=== PATIENT | female | born 1955 | race Caucasian/White ===

== ENCOUNTER → 2020-12-09 13:22 | Outpatient (BNVA) | payer MEDICARE, MEDICAID, SELFPAY | PROVIDERS: PCP Internal Medicine; Visit Provider Physician Assistant | DX: Z76.89 Persons encountering health services in other specified circumstances (principal) | CPT/HCPCS: Q3014 ==

== ENCOUNTER → 2020-12-15 15:24 | Outpatient (BNVA) | payer MEDICARE, MEDICAID, SELFPAY | PROVIDERS: PCP Internal Medicine; Referring Provider Internal Medicine; Visit Provider Student in an Organized Health Care Education/Training Program ==

== ENCOUNTER 2021-02-02 14:34 | Outpatient (REF) | payer MEDICARE, MEDICAID, SELFPAY ==
[2021-02-02 16:09] LABS: Alanine Aminotransferase 9 U/L (0-31); Albumin Level 4.4 g/dL (3.5-5.0); Alkaline Phosphatase 51 U/L (39-117); Anion Gap 11 (12-20); Aspartate Amino Transferase 16 U/L (5-31); Blood Urea Nitrogen 10 mg/dL (9-16); Calcium 9.4 mg/dL (8.4-10.2); Carbon Dioxide 28 mmol/L (22-29); Chloride 102 mmol/L (96-108); Estimated Glomerular Filt Rate > 60; Glucose Random 85 mg/dL (60-115); Potassium 4.7 mmol/L (3.3-5.1); Sodium 136 mmol/L (135-145); Total Protein 7.1 g/dL (6.5-8.0)
[2021-02-02 16:23] LABS: Bilirubin Total < 0.2 mg/dL (0.0-1.0)
== END 2021-02-02 14:35 | disposition home or self-care (01) ==
LOC: HO.LAB 14:34
PROVIDERS: PCP Internal Medicine; Visit Provider Student in an Organized Health Care Education/Training Program
DX: G89.29 Other chronic pain (principal); M54.41 Lumbago with sciatica, right side; Z79.899 Other long term (current) drug therapy
CPT/HCPCS: 36415; 80053; 99212

== ENCOUNTER 2021-04-24 10:05 | Outpatient (REF) | payer MEDICARE, MEDICAID, SELFPAY ==
[2021-04-24 11:12] LABS: Hematocrit 36.6 % (37-47); Hemoglobin 12.4 g/dl (12.0-16.0); Mean Corpuscular HGB Conc 33.9 g/dl (31.0-35.0); Mean Corpuscular Hemoglobin 31.6 pg (27.0-33.0); Mean Corpuscular Volume 93.1 fL (80-98); Mean Platelet Volume 9.6 fL (9.4-12.3); Platelet Count 418 X10*3/uL (160-400); Red Blood Count 3.93 X10*6/uL (4.20-5.50); Red Cell Distribution Width 11.8 % (11.0-16.0); White Blood Count 7.3 X10*3/uL (4.8-10.8)
[2021-04-24 11:36] LABS: Alanine Aminotransferase 12 U/L (0-31); Albumin Level 4.5 g/dL (3.5-5.0); Alkaline Phosphatase 55 U/L (39-117); Anion Gap 13 (12-20); Aspartate Amino Transferase 23 U/L (5-31); Bilirubin Total 0.5 mg/dL (0.0-1.0); Blood Urea Nitrogen 7 mg/dL (9-16); Calcium 9.5 mg/dL (8.4-10.2); Carbon Dioxide 27 mmol/L (22-29); Chloride 100 mmol/L (96-108); Cholesterol 228 mg/dL; Estimated Glomerular Filt Rate > 60; Glucose Fasting 87 mg/dL (60-99); HDL Cholesterol 78 mg/dL; LDL Cholesterol Calculated 139 mg/dl; Potassium 4.8 mmol/L (3.3-5.1); Sodium 135 mmol/L (135-145); Total Protein 7.2 g/dL (6.5-8.0); Triglycerides 59 mg/dL
[2021-04-24 11:57] LABS: Thyroid Stimulating Hormone 0.02 uIU/mL (0.32-4.0)
== END 2021-04-24 10:06 | disposition home or self-care (01) ==
LOC: HO.HMGCLDS 10:05
PROVIDERS: PCP Internal Medicine; Visit Provider Internal Medicine
DX: B19.20 Unspecified viral hepatitis C without hepatic coma (principal); E03.9 Hypothyroidism, unspecified; I10 Essential (primary) hypertension; J44.9 Chronic obstructive pulmonary disease, unspecified; F41.9 Anxiety disorder, unspecified
CPT/HCPCS: 36415; 80053; 80061; 84443; 85027

== ENCOUNTER 2021-06-15 08:43 | Day surgery (SDC) | payer MEDICARE, MEDICAID, SELFPAY ==
[2021-02-24 11:01] VITALS: BMI 22.1
[2021-05-18 13:46] VITALS: BMI 21.6
--- NOTE | 2021-05-24 10:18 | P.CONAN_ITS ---
HPI - Anesthesia Eval Consult details Narrative: 65yo F for Colonoscopy PMF Active Problems Active Problems: All Active Problems (Updated 02/02/21 @ 14:37 by Janette Kaiser MD) Lumbago with sciatica, right side (Acute) Encounter for screening colonoscopy (Acute) Allergies (Acute) S/P LEODAN (total abdominal hysterectomy) (Acute) Hepatitis C infection (Acute) History of breast cancer (Acute) Spinal stenosis (Acute) HTN (hypertension) (Acute) Asthma (Acute) Hypothyroid (Acute) Past Medical History Medical History Allergies Anxiety Asthma COPD (chronic obstructive pulmonary disease) ETOH abuse Hepatitis C infection History of breast cancer HTN (hypertension) Hypothyroid Osteoarthritis Spinal stenosis Family History Family History Mother Breast cancer Skin cancer Throat cancer Colon cancer Brother No problems noted. Brother No problems noted. Sister No problems noted. Maternal Grandfather Colon cancer Maternal Uncle Colon cancer Surgical History Surgical History History of appendectomy History of mastectomy History of tonsillectomy S/P LEODAN (total abdominal hysterectomy) Social History Social History (Updated 02/24/21 @ 11:03 by Lina Madrigal) Are you a primary family day carer to a significant other at home: No Do you presently have visiting nurse or other home services: No Patient Tobacco Use Status: Current everyday Tobacco user Tobacco use type: Cigarette Meds Allergies Allergy/AdvReac Type Severity Reaction Status Date / Time docetaxel [From TAXOTERE] Allergy Intermediate TONGUE Verified 05/18/21 13:39 SWELLING Home Medications Medication Instructions Recorded Confirmed Last Taken Type albuterol sulfate 90 mcg/actuation 1 inh INHALATION Q4H PRN 09/15/20 04/29/21 Unknown History aerosol inhaler levothyroxine 112 mcg tablet 112 mcg PO QAM 09/15/20 04/29/21 Unknown History omeprazole 20 mg capsule,delayed 20 mg PO DAILY 09/15/20 04/29/21 Unknown History release diphenhydramine HCl 25 mg capsule 25 mg PO TID PRN 12/09/20 04/29/21 Unknown History montelukast 10 mg tablet 10 mg PO DAILY 02/02/21 04/29/21 Unknown History Exam Exam Date and Time: May 24, 2021 1018 Height,Weight and Vital Signs: Height 5 ft 6 in Weight 60.781 kg Pertinent Lab Results Pertinent Lab Results: Laboratory Tests 04/24/21 04/24/21 10:10 10:10 WBC 7.3 Hgb 12.4 Hct 36.6 L Plt Count 418 H Sodium 135 Potassium 4.8 Chloride 100 Carbon Dioxide 27 BUN 7 L Creatinine 0.72 Assessment and Plan Assessment Anesthesia Assessment: Chart Reviewed
--- NOTE | 2021-06-14 08:45 | P.CONAN_ITS ---
HPI - Anesthesia Eval Consult details Narrative: 65yo F for Colonoscopy PMF Active Problems Active Problems: All Active Problems (Updated 02/02/21 @ 14:37 by Janette Kaiser MD) Lumbago with sciatica, right side (Acute) Encounter for screening colonoscopy (Acute) Allergies (Acute) S/P LEODAN (total abdominal hysterectomy) (Acute) Hepatitis C infection (Acute) History of breast cancer (Acute) Spinal stenosis (Acute) HTN (hypertension) (Acute) Asthma (Acute) Hypothyroid (Acute) Past Medical History Medical History Allergies Anxiety Asthma COPD (chronic obstructive pulmonary disease) ETOH abuse Hepatitis C infection History of breast cancer HTN (hypertension) Hypothyroid Osteoarthritis Spinal stenosis Family History Family History Mother Breast cancer Skin cancer Throat cancer Colon cancer Brother No problems noted. Brother No problems noted. Sister No problems noted. Maternal Grandfather Colon cancer Maternal Uncle Colon cancer Surgical History Surgical History History of appendectomy History of mastectomy History of tonsillectomy S/P LEODAN (total abdominal hysterectomy) Social History Social History (Updated 02/24/21 @ 11:03 by Lina Madrigal) Are you a primary inpatient care manager rn to a significant other at home: No Do you presently have visiting nurse or other home services: No Patient Tobacco Use Status: Current everyday Tobacco user Tobacco use type: Cigarette Patient Given Instructions on How to Stop Smoking: Yes Date Education Initiated: 05/18/21 Advance Directives Information Provided: No Meds Allergies Allergy/AdvReac Type Severity Reaction Status Date / Time docetaxel [From TAXOTERE] Allergy Intermediate TONGUE Verified 05/18/21 13:39 SWELLING Home Medications Medication Instructions Recorded Confirmed Last Taken Type levothyroxine 112 mcg tablet 112 mcg PO QAM 09/15/20 04/29/21 Unknown History omeprazole 20 mg capsule,delayed 20 mg PO DAILY 09/15/20 04/29/21 Unknown History release diphenhydramine HCl 25 mg capsule 25 mg PO TID PRN 12/09/20 04/29/21 Unknown History montelukast 10 mg tablet 10 mg PO DAILY 02/02/21 04/29/21 Unknown History Exam Exam Date and Time: June 14, 2021 0845 Height,Weight and Vital Signs: Height 5 ft 6 in Weight 60.781 kg Pertinent Lab Results Pertinent Lab Results: Laboratory Tests 04/24/21 04/24/21 10:10 10:10 WBC 7.3 Hgb 12.4 Hct 36.6 L Plt Count 418 H Sodium 135 Potassium 4.8 Chloride 100 Carbon Dioxide 27 BUN 7 L Creatinine 0.72 Assessment and Plan Assessment Anesthesia Assessment: Chart Reviewed
--- NOTE | 2021-06-15 09:04 | MHC.SHP ---
Pre-Procedural Eval Section A Date of Service: 06/15/21 Section B Chief Complaint: Screening Details of Present Illness: colon cancer screening Relevant Family History (Specify if Yes): Yes Relevant Social History: Tobacco Use Present Medications: see Short Stay Collaborative assessment Medical History: Significant History (Allergies Anxiety Asthma COPD (chronic obstructive pulmonary disease) ETOH abuse Hepatitis C infection History of breast cancer HTN (hypertension) Hypothyroid Osteoarthritis Spinal stenosis) History of Previous Operations: Relevant previous surgery/procedure and date(s) (History of appendectomy History of mastectomy History of tonsillectomy S/P LEODAN (total abdominal hysterectomy)) Allergies: Allergies Allergy/AdvReac Type Severity Reaction Status Date / Time docetaxel [From TAXOTERE] Allergy Intermediate TONGUE Verified 05/18/21 13:39 SWELLING Review of Systems Sugical H&P ROS: Negative: Constitution, Cardiovascular, Respiratory and Gastrointestinal Exam Surgical H&P Exam: Normal: Heart, Normal: Lungs, Normal: Extremities and Normal: Abdomen Plan Diagnosis/Plan: Unchanged I have reviewed the history and physical and performed a pertinent physical examination on my patient. No changes have occurred unless specified.
[2021-06-15 09:23] VITALS: BP 126/71; PULSE 84; RESP 18; TEMP 36.4; O2SAT 97
[2021-06-15] MEDS: Lactated Ringers 1,000 ML 100 ML IVCONT (09:30)
--- NOTE | 2021-06-15 09:30 | P.CONAN_ITS ---
[facility] Active Problems Active Problems: All Active Problems (Updated 02/02/21 @ 14:37 by Janette elizabeth MD) Lumbago with sciatica, right side (Acute) Encounter for screening colonoscopy (Acute) Allergies (Acute) S/P LEODAN (total abdominal hysterectomy) (Acute) Hepatitis C infection (Acute) History of breast cancer (Acute) Spinal stenosis (Acute) HTN (hypertension) (Acute) Asthma (Acute) Hypothyroid (Acute) Past Medical History Medical History Allergies Anxiety Asthma COPD (chronic obstructive pulmonary disease) ETOH abuse Hepatitis C infection History of breast cancer HTN (hypertension) Hypothyroid Osteoarthritis Spinal stenosis Family History Family History Mother Breast cancer Skin cancer Throat cancer Colon cancer Brother No problems noted. Brother No problems noted. Sister No problems noted. Maternal Grandfather Colon cancer Maternal Uncle Colon cancer Surgical History Surgical History History of appendectomy History of mastectomy History of tonsillectomy S/P LEODAN (total abdominal hysterectomy) Social History Social History (Updated 02/24/21 @ 11:03 by Lina Madrigal) Are you a primary pharmacist critical care to a significant other at home: No Do you presently have visiting nurse or other home services: No Patient Tobacco Use Status: Current everyday Tobacco user Tobacco use type: Cigarette Patient Given Instructions on How to Stop Smoking: Yes Date Education Initiated: 05/18/21 Advance Directives Information Provided: No Meds Allergies Allergy/AdvReac Type Severity Reaction Status Date / Time docetaxel [From TAXOTERE] Allergy Intermediate TONGUE Verified 05/18/21 13:39 SWELLING Active Medications: Current Medications Generic Name Dose Route Start Last Admin Trade Name Freq PRN Reason Stop Dose Admin Albuterol Sulfate 2.5 mg 06/15/21 09:20 Albuterol Sulfate (0.083%) 2.5 Mg/3 Ml Vial.Neb INHALE ONCE PRN Shortness of Breath/Wheezing Lactated Ringer's 1,000 mls @ 100 mls/hr 06/15/21 09:30 06/15/21 09:30 Lr IVCONT 100 mls/hr .Q10H CARMELO Administration Home Medications Medication Instructions Recorded Confirmed Last Taken Type levothyroxine 112 mcg tablet 112 mcg PO QAM 09/15/20 04/29/21 Unknown History omeprazole 20 mg capsule,delayed 20 mg PO DAILY 09/15/20 04/29/21 Unknown History release diphenhydramine HCl 25 mg capsule 25 mg PO TID PRN 12/09/20 04/29/21 Unknown History montelukast 10 mg tablet 10 mg PO DAILY 02/02/21 04/29/21 Unknown History Exam Exam Date and Time: June 15, 2021 0930 Height,Weight and Vital Signs: Height 5 ft 6 in Weight 60.781 kg Last Vital Signs Temp 97.6 F 06/15/21 09:23 Pulse 84 06/15/21 09:23 Resp 18 06/15/21 09:23 BP 126/71 06/15/21 09:23 Pulse Ox 97 06/15/21 09:23 Airway Mallampati Class: II TM Dist: >3cm Neck ROM: Full Heart: RRR Lungs: CTA
--- NOTE | 2021-06-15 10:06 | P.BOP_ITS ---
Brief Operative Note Date of Service: 06/15/21 Pre-op diagnosis: Colon cancer screen, family history of colon cancer (mom in her 70's) Post-op diagnosis: other (Colon polyps, diverticulosis) Procedure: COLONOSCOPY TILL CECUM WITH BIOPSIES AND SNARE POLYPECTOMY Consent: Indications for the procedure and potential complications of bleeding, perforation, reaction to medications and missed diagnosis were discussed with the patient and informed consent was obtained. Instrument: Olympus PCF H 190 L variable stiffness pediatric colonoscope Monitoring: Vital signs and clinical assessment, intermittent blood pressure monitoring, continuous EKG monitoring, Pulse oximetry and Carbon Dioxide monitoring were done throughout the procedure. Colon withdrawl time was 28 minutes. Procedure: The patient was placed in the left lateral decubitis position and pre-procedure medications were administered. After a digital rectal examination of the ano-rectum, the video colonoscope was inserted into the rectum and advanced through the colon to the cecum. The colonoscope was slowly withdrawn in a retrograde panoramic fashion and the colon mucosa was carefully examined including a retroflexed view of the rectum. Findings and interventions are described below. Procedure Difficulty: Colon was long and tortuous and there was spasm and some loop formation. LLQ pressure was applied to intubate the ascending colon/cecum Findings: Terminal Ileum: Not evaluated Cecum: Normal Ascending Colon: Normal Transverse Colon: Two 4-5 mm diminutive appearing polyps in the distal transverse colon removed with cold biopsies. Descending Colon: Normal Sigmoid Colon: A 7-8 mm sessile polyp removed with a cold bx. Two 8-15 mm hyperplastic appearing polyps at 25 cms removed with a hot snare. Moderate diverticulosis Rectum: Normal Ano-rectum: Normal Colon preparation: Good Impression and Post Procedure Diagnosis: Colonoscopy Findings: Five small to medium sized polyps removed Moderate diverticulosis seen in the sigmoid colon Plan: Await pathology results. Pt will be sent a letter with bx results. Repeat Colonoscopy interval based on path results - in 3-5 years if polyps are adenomatous and 10 years if polyps are hyperplastic. Above findings were reviewed with the patient and colon polyps and diverticulosis handouts were given in the discharge area Surgeon: Varsha Moy MD Anesthesia: MAC (Dr Lott) Was an Painter Interior Finish used for this Procedure?: Yes Painter Interior Finish: Haydee Mckinney Estimated blood loss (mL): 0 Pathology: other (A: TRANSVERSE COLON POLYPS B: SIGMOID COLON POLYP C: SIGMOID COLON POLYPS AT 25 CM) Condition: stable Disposition: PACU
[2021-06-15 10:57] VITALS: BP 103/60; PULSE 85; RESP 16; TEMP 36.4; O2SAT 97
[2021-06-15 11:12] VITALS: BP 123/62; PULSE 82; RESP 16; TEMP 36.4; O2SAT 100
== END 2021-06-15 11:38 | disposition home or self-care (01) ==
PROVIDERS: PCP Internal Medicine; Visit Provider Internal Medicine Gastroenterology
PROC: 0DJD8ZZ Inspection of Lower Intestinal Tract, Via Natural or Artificial Opening Endoscopic (ICD-10-PCS; CPT 45378; principal; 2021-06-15 10:00)
DX: Z12.11 Encounter for screening for malignant neoplasm of colon (principal); Z80.0 Family history of malignant neoplasm of digestive organs; K63.5 Polyp of colon; K57.30 Diverticulosis of large intestine without perforation or abscess without bleeding; J44.9 Chronic obstructive pulmonary disease, unspecified; I10 Essential (primary) hypertension; Z79.899 Other long term (current) drug therapy; Z85.3 Personal history of malignant neoplasm of breast; Z86.19 Personal history of other infectious and parasitic diseases; F17.210 Nicotine dependence, cigarettes, uncomplicated
CPT/HCPCS: 45385; 45380; 88305

== ENCOUNTER 2021-07-15 09:56 | Outpatient (REF) | payer MEDICARE, MEDICAID, SELFPAY ==
[2021-07-15 12:09] LABS: TSH reflex Free T4 0.05 uIU/mL (0.32-4.0)
[2021-07-15 12:41] LABS: Free T4 (Free Thyroxine) 1.28 ng/dL (0.71-1.85)
== END 2021-07-15 09:57 | disposition home or self-care (01) ==
LOC: HO.HMGCLDS 09:56
PROVIDERS: PCP Internal Medicine; Visit Provider Internal Medicine
DX: E03.9 Hypothyroidism, unspecified (principal)
CPT/HCPCS: 36415; 84439; 84443

== ENCOUNTER 2022-01-14 14:07 | Outpatient (REF) | payer MEDICARE, MEDICAID, SELFPAY ==
--- NOTE | ~2022-01-14 | CT_ITS ---
EXAMINATION: CT CHEST SCREENING CLINICAL INFORMATION: 50 pack year history COMPARISON: Previous chest CT May 2020 TECHNIQUE: Multidetector volumetric CT imaging of the chest is performed without contrast using low dose technique. Additional 2D coronal and sagittal reformatted images and axial 3D maximum intensity projection (MIP) images are generated on the CT workstation. This CT examination was performed using dose optimization techniques as appropriate, variously including the following: *Automated exposure control *Adjustment of mA and/or kV according to patient size (this includes techniques or standardized protocols for targeted exams where dose is matched to indication/reason for exam; i.e. extremities or head) *Use of iterative reconstruction technique DLP: 59 mGy-cm FINDINGS: LUNGS: There is mild emphysema. There is a new peripheral or subpleural 4 mm left lower lobe nodule axial image 255 series 5. The pulmonary nodules are otherwise stable. There is a 1.5 cm cyst in the left lower lobe. MEDIASTINUM: There is mild coronary artery calcification. The mediastinum is otherwise normal. PLEURA: There is no pleural effusion. No pleural mass or thickening. AXILLA: There are surgical clips in the right axilla. Both breasts. Have been removed. No chest wall mass or enlarged axillary lymph nodes. UPPER ABDOMEN: Unremarkable OSSEOUS STRUCTURES: Mild scoliosis and degenerative changes of the lower thoracic and upper lumbar spine. CT/CT lung screening IMPRESSION: Mild emphysema. New 4 mm peripheral or subpleural left lower lobe nodule. This may represent a subpleural lymph node. Otherwise small pulmonary nodules are stable. ASSESSMENT: Lung-RADS category 2: Benign RECOMMENDATION: Annual low-dose chest CT follow-up recommended.
== END 2022-01-14 14:08 | disposition home or self-care (01) ==
LOC: HO.CT 14:07
PROVIDERS: Visit Provider Physician Assistant Medical
DX: Z12.2 Encounter for screening for malignant neoplasm of respiratory organs (principal); Z87.891 Personal history of nicotine dependence
CPT/HCPCS: 71271

== ENCOUNTER 2022-01-17 10:53 | Outpatient (REF) | payer MEDICARE, MEDICAID, SELFPAY ==
[2022-01-17 14:28] LABS: TSH reflex Free T4 0.04 uIU/mL (0.32-4.0)
== END 2022-01-17 10:54 | disposition home or self-care (01) ==
LOC: HO.HMGCLDS 10:53
PROVIDERS: Visit Provider Internal Medicine
DX: E03.9 Hypothyroidism, unspecified (principal)
CPT/HCPCS: 36415; 84439; 84443

== ENCOUNTER → 2022-02-10 12:35 | Outpatient (BNVA) | payer MEDICARE, MEDICAID, SELFPAY | PROVIDERS: PCP Internal Medicine; Visit Provider Nurse Practitioner Family | DX: M54.41 Lumbago with sciatica, right side (principal); G89.29 Other chronic pain | CPT/HCPCS: 99212 ==

== ENCOUNTER 2022-04-04 13:30 | Outpatient (REF) | payer MEDICARE, MEDICAID, SELFPAY ==
[2022-04-04 16:47] LABS: Alanine Aminotransferase 10 U/L (0-31); Albumin Level 4.1 g/dL (3.5-5.0); Alkaline Phosphatase 52 U/L (39-117); Anion Gap 12 (12-20); Aspartate Amino Transferase 17 U/L (5-31); Bilirubin Total 0.2 mg/dL (0.0-1.0); Blood Urea Nitrogen 8 mg/dL (9-16); Calcium 9.6 mg/dL (8.4-10.2); Carbon Dioxide 28 mmol/L (22-29); Chloride 102 mmol/L (96-108); Estimated Glomerular Filt Rate > 60; Glucose Random 87 mg/dL (60-115); Potassium 4.1 mmol/L (3.3-5.1); Sodium 138 mmol/L (135-145); Total Protein 7.2 g/dL (6.5-8.0)
== END 2022-04-04 13:31 | disposition home or self-care (01) ==
LOC: HO.HMGCLDS 13:30
PROVIDERS: Visit Provider Nurse Practitioner Family
DX: M54.41 Lumbago with sciatica, right side (principal)
CPT/HCPCS: 36415; 80053

== ENCOUNTER 2022-08-18 07:52 | Outpatient (REF) | payer MEDICARE, MEDICAID, SELFPAY ==
[2022-08-18 11:23] LABS: Hematocrit 36.8 % (37.0-47.0); Hemoglobin 12.3 g/dl (12.0-16.0); Mean Corpuscular HGB Conc 33.4 g/dl (31.0-35.0); Mean Corpuscular Hemoglobin 31.1 pg (27.0-33.0); Mean Corpuscular Volume 93.2 fL (80.0-98.0); Mean Platelet Volume 9.8 fL (9.4-12.3); Platelet Count 392 X10*3/uL (160-400); Red Blood Count 3.95 X10*6/uL (4.20-5.50); Red Cell Distribution Width 12.5 % (11.0-16.0); White Blood Count 7.8 X10*3/uL (4.8-10.8)
[2022-08-18 11:37] LABS: Alanine Aminotransferase 13 U/L (0-31); Albumin Level 4.4 g/dL (3.5-5.0); Alkaline Phosphatase 53 U/L (39-117); Anion Gap 14 (12-20); Aspartate Amino Transferase 21 U/L (5-31); Bilirubin Total 0.5 mg/dL (0.0-1.0); Blood Urea Nitrogen 10 mg/dL (9-16); Calcium 9.7 mg/dL (8.4-10.2); Carbon Dioxide 26 mmol/L (22-29); Chloride 101 mmol/L (96-108); Cholesterol 257 mg/dL; Estimated Glomerular Filt Rate > 60; Glucose Fasting 84 mg/dL (60-99); HDL Cholesterol 77 mg/dL; LDL Cholesterol Calculated 168 mg/dl; Potassium 4.6 mmol/L (3.3-5.1); Sodium 136 mmol/L (135-145); Total Protein 7.3 g/dL (6.5-8.0); Triglycerides 63 mg/dL
[2022-08-18 12:07] LABS: TSH reflex Free T4 0.04 uIU/mL (0.32-4.0)
[2022-08-18 12:40] LABS: Free T4 (Free Thyroxine) 1.35 ng/dL (0.71-1.85)
== END 2022-08-18 07:53 | disposition home or self-care (01) ==
LOC: HO.HMGCLDS 07:52
PROVIDERS: PCP Internal Medicine; Visit Provider Internal Medicine
DX: Z00.00 Encounter for general adult medical examination without abnormal findings (principal); E03.9 Hypothyroidism, unspecified; I10 Essential (primary) hypertension
CPT/HCPCS: 36415; 80053; 80061; 84439; 84443; 85027

== ENCOUNTER 2022-12-22 08:40 | Outpatient (REF) | payer MEDICARE, MEDICAID, SELFPAY ==
[2022-12-22 11:57] LABS: Cholesterol 196 mg/dL; HDL Cholesterol 71 mg/dL; LDL Cholesterol Calculated 110 mg/dl; Triglycerides 75 mg/dL
== END 2022-12-22 08:41 | disposition home or self-care (01) ==
LOC: HO.HMGCLDS 08:40
PROVIDERS: PCP Internal Medicine; Visit Provider Internal Medicine
DX: E78.5 Hyperlipidemia, unspecified (principal); I10 Essential (primary) hypertension
CPT/HCPCS: 36415; 80061

== ENCOUNTER 2023-01-10 09:52 | Outpatient (REF) | payer MEDICARE, MEDICAID, SELFPAY ==
--- NOTE | ~2023-01-10 | CT_ITS ---
EXAMINATION: CT CHEST SCREENING CLINICAL INFORMATION: Current smoker. 40 pack year history. COMPARISON: Previous chest CT scans most recent December 2021 TECHNIQUE: Multidetector volumetric CT imaging of the chest is performed without contrast using low dose technique. Additional 2D coronal and sagittal reformatted images and axial 3D maximum intensity projection (MIP) images are generated on the CT workstation. This CT examination was performed using dose optimization techniques as appropriate, variously including the following: *Automated exposure control *Adjustment of mA and/or kV according to patient size (this includes techniques or standardized protocols for targeted exams where dose is matched to indication/reason for exam; i.e. extremities or head) *Use of iterative reconstruction technique DLP: 40 mGy-cm FINDINGS: LUNGS: Mild paraseptal emphysema. 3 mm left upper lobe nodule axial image 134 series 5. Stable. 2 mm superior segment left lower lobe nodule axial image 176 series 5. Stable. 2 adjacent peripheral or subpleural left lower lobe nodules adjacent to fissure measuring 6 and 4 mm axial image 212 and 2:15 probably representing subpleural lymph nodes. Stable. 1 cm cyst at the left lung base in the left lower lobe axial image 390 series 5. The previously identified peripheral or subpleural 4 mm left lower lobe nodule that was seen on December 2021 exam is no longer seen. MEDIASTINUM: The mediastinum is normal. CORONARY ARTERY CALCIFICATION: Mild PLEURA: There is no pleural effusion. No pleural mass or thickening. AXILLA: Surgical clips in the right axilla. No axillary adenopathy. Postmastectomy bilaterally. UPPER ABDOMEN: Tiny 1 mm stone in the upper pole of the right kidney. Small low-attenuation lesion less than 1 cm medial segment of the left anterior segment of the right lobe of the liver axial image 54 series 3 is stable. OSSEOUS STRUCTURES: Degenerative changes of the spine. CT/CT lung screening IMPRESSION: Mild paraseptal emphysema. Previously identified 4 mm peripheral or subpleural left lower lobe nodule that was new on December 2021 exam is no longer seen. Otherwise pulmonary nodules are stable. ASSESSMENT: Lung-RADS category 2: Benign RECOMMENDATION: Annual low-dose chest CT follow-up recommended.
== END 2023-01-10 09:53 | disposition home or self-care (01) ==
LOC: HO.CT 09:52
PROVIDERS: Absent Provider Physician Assistant; PCP Internal Medicine; Visit Provider Physician Assistant Medical
DX: Z12.2 Encounter for screening for malignant neoplasm of respiratory organs (principal); F17.210 Nicotine dependence, cigarettes, uncomplicated
CPT/HCPCS: 71271

== ENCOUNTER 2023-08-01 09:27 | Outpatient (REF) | payer MEDICARE, MEDICAID, SELFPAY ==
[2023-08-01 13:25] LABS: MANUAL DIFF FLAG NO
[2023-08-01 13:39] LABS: Basophils Absolute Auto 0.1 X10*3/uL (0.0-0.2); Basophils Percent Auto 0.7 % (0-2); Eosinophils Absolute Auto 0.1 X10*3/uL (0.0-0.4); Eosinophils Percent Auto 1.1 % (0-4); Hematocrit 39.7 % (37.0-47.0); Hemoglobin 13.1 g/dl (12.0-16.0); Imm Gran Abs Auto 0.02 X10*3/uL (0.00-0.03); Imm Gran Pct Auto 0.3 % (0.0-0.4); Lymphocytes Absolute Auto 2.2 X10*3/uL (1.2-4.9); Mean Corpuscular Hemoglobin 31.9 pg (27.0-33.0); Mean Corpuscular Volume 96.6 fL (80.0-98.0); Mean Platelet Volume 9.9 fL (9.4-12.3); Monocytes Absolute Auto 0.4 X10*3/uL (0.1-1.2); Monocytes Percent Auto 5.1 % (2-11); Neutrophils Absolute Auto 4.8 x10*3/uL (2.0-8.3); Neutrophils Percent Auto 63.8 % (45-73); Platelet Count 395 X10*3/uL (160-400); Red Blood Count 4.11 X10*6/uL (4.20-5.50); Red Cell Distribution Width 12.5 % (11.0-16.0); White Blood Count 7.5 X10*3/uL (4.8-10.8)
[2023-08-01 15:09] LABS: Alanine Aminotransferase 14 U/L (0-31); Albumin Level 4.4 g/dL (3.5-5.0); Alkaline Phosphatase 52 U/L (39-117); Anion Gap 11 (12-20); Aspartate Amino Transferase 21 U/L (5-31); Bilirubin Total 0.2 mg/dL (0.0-1.0); Blood Urea Nitrogen 14 mg/dL (9-16); Carbon Dioxide 30 mmol/L (22-29); Chloride 101 mmol/L (96-108); Cholesterol 175 mg/dL (<200); Estimated Glomerular Filt Rate > 60; Glucose Fasting 90 mg/dL (60-99); HDL Cholesterol 81 mg/dL (>40); LDL Cholesterol Calculated 82 mg/dL (<100); Potassium 4.9 mmol/L (3.3-5.1); Sodium 137 mmol/L (135-145); Total Protein 7.8 g/dL (6.5-8.0); Triglycerides 63 mg/dL (<150)
[2023-08-01 15:10] LABS: TSH reflex Free T4 0.06 uIU/mL (0.32-4.0)
[2023-08-01 15:48] LABS: Free T4 (Free Thyroxine) 1.14 ng/dL (0.71-1.85)
== END 2023-08-01 09:28 | disposition home or self-care (01) ==
LOC: HO.HMGCLDS 09:27
PROVIDERS: PCP Internal Medicine; Visit Provider Internal Medicine
DX: E78.5 Hyperlipidemia, unspecified (principal); I10 Essential (primary) hypertension; E03.9 Hypothyroidism, unspecified
CPT/HCPCS: 36415; 80053; 80061; 84439; 84443; 85025

== ENCOUNTER 2023-08-04 10:57 | Outpatient (AMB) | payer MEDICARE, MEDICAID, SELFPAY ==
--- NOTE | 2023-08-04 11:15 | MHC.PC.OV ---
Vital Signs 08/04/23 11:17 Height 5 ft 6 in Weight 122 lb BMI 19.7 BP 120/66 Blood Pressure Location Lt brachial Position Sitting Pulse 88 Pulse Source Pulse Oximeter Pulse Oximetry (%) 99 Oxygen Delivery Method Room Air Intake Visit Reasons: Annual PE/COPD Intake Note: Pt is here today for PE. Allergies docetaxel [From TAXOTERE] Allergy (Intermediate, Verified 08/04/23 11:19) TONGUE SWELLING Medication List - Last Reconciled 08/04/23 by Julieth Hendrickson MD albuterol sulfate 90 mcg/actuation (Ventolin HFA) 2 puffs inhalation Q6H PRN budesonide-formoterol 80-4.5 mcg/actuation (Symbicort) 2 puffs PO BID diphenhydramine HCl (Benadryl) 25 mg PO TID PRN fluticasone propionate 50 mcg/actuation 2 sprays intranasal DAILY gabapentin 400 mg PO QID levothyroxine 112 mcg PO QAM lisinopril 10 mg PO DAILY methocarbamol 750 mg PO Q8H PRN montelukast 10 mg PO BEDTIME omeprazole 20 mg PO DAILY pravastatin 40 mg PO DAILY Tobacco use date assessed: 08/04/23 Fall risk assessment: No Falls in past year Last assessed Fall Risk: 08/04/23 Dental Screening Dental Screen Date: 08/04/23 Did you have a dental visit in the last 12 months?: Yes Did you have a dental problem in the last 6 months where you did not have access to dental care?: No Was dental information given to patient?: Patient has dentist HPI Annual PE/COPD HPI Details Pt presents for PE PFSH Medical History (Updated 08/04/23 @ 12:00 by Julieth Hendrickson MD) History of colon polyps Nicotine dependence, cigarettes, uncomplicated Allergies Hepatitis C infection History of breast cancer Spinal stenosis HTN (hypertension) ETOH abuse Osteoarthritis Anxiety Hypothyroid COPD (chronic obstructive pulmonary disease) Asthma Surgical History History of colonoscopy History of total hysterectomy History of tonsillectomy History of appendectomy History of mastectomy Family History Mother Breast cancer Skin cancer Throat cancer Colon cancer Brother No problems noted. Brother No problems noted. Sister Substance use disorder Maternal Grandfather Colon cancer Maternal Uncle Colon cancer Father Substance use disorder Social History Housing: House Are you a primary career development consultant to a significant other at home: No Do you presently have visiting nurse or other home services: No Patient Tobacco Use Status: Current everyday Tobacco user Tobacco use type: Cigarette Cigarette Packs Per Day: 1 Cigarettes Per Day: 20 Years Smoked: (onset 15yo, 1ppd x 52yrs, 50pyh) e-Cigarette/Vaping Use: Never Used Current occupational status: unemployed Cognitive needs: No Hearing needs: No Vision needs: Yes Questionnaire Thrive Questionnaire Date Thrive assessed: 01/23/23 AUDIT C Alcohol Use Questionnaire (AUDIT-C) 1. How often do you have a drink containing alcohol?: Never 3. How often do you have six or more drinks on one occasion?: Never Total Score: 0 ZAID-7 AMB Questionnaire ZAID-7 Date ZAID - 7 assessed: 01/23/23 Source: Developed by Drs. Jose Brito, Holley Brewster, Gregorio Landeros and colleagues, with an educational jake from [employer]. Review of Systems Const All systems reviewed & are unremarkable except as noted in HPI and below Reports no additional complaints Eyes Reports no additional complaints ENT Reports no additional complaints Card Reports no additional complaints Resp Reports no additional complaints GI Reports no additional complaints Reports no additional complaints Physical exam (Primary Care) Vital Signs: Last Vital Signs Pulse 88 08/04/23 11:17 BP 120/66 08/04/23 11:17 Pulse Ox 99 08/04/23 11:17 Oxygen Delivery Method Room Air 08/04/23 11:17 BMI result Body Mass Index 19.7 Tobacco/Smoking Status: Tobacco use Status Tobacco use date assessed 08/04/23 08/04/23 11:24 Patient Tobacco Use Status Current everyday Tobacco 08/04/23 11:16 Tobacco use type Cigarette 08/04/23 11:16 e-Cigarette/Vaping Use Never Used 08/04/23 11:16 Thrive Assessment: Date of Thrive Assessment Date Thrive assessed 01/23/23 08/04/23 11:16 Const General: no acute distress HENMT Head: Yes normal to inspection General nose exam: Normal external nose present Face and sinus: Yes normal facial exam Throat: Yes posterior oropharynx normal Eyes General: appearance normal, both eyes and all related structures Neck Neck: Yes no lymphadenopathy and Yes supple Resp Effort & Inspection: normal respiratory effort Auscultation: clear to auscultation bilaterally Cardio Rhythm: regular rhythm Heart sounds: S1 normal heart sound present and S2 normal heart sound present GI Inspection: Yes normal to inspection Palpation (GI): Soft to palpation Percussion: Yes normal to percussion Auscultation: normal bowel sounds Assessment and Plan Assessment & Plan (1) Postmenopausal: Comment: STATUS POST HYSTERECTOMY AND BILATERAL MASTECTOMY Code(s): Z78.0 - Asymptomatic menopausal state Plan: check DEXA (2) Hallux hammertoe: Code(s): M20.30 - Hallux varus (acquired), unspecified foot Plan: REFERRED TO PODIATRY (3) Hypothyroid: Code(s): E03.9 - Hypothyroidism, unspecified Plan: Continue levothyroxine check TSH in 6 months (4) HTN (hypertension): Code(s): I10 - Essential (primary) hypertension Plan: Continue lisinopril (5) Hyperlipidemia: Code(s): E78.5 - Hyperlipidemia, unspecified Plan: Continue pravastatin (6) COPD (chronic obstructive pulmonary disease): Comment: Patient cannot tolerate powder inhalers including Advair Spiriva or Trelegy Code(s): J44.9 - Chronic obstructive pulmonary disease, unspecified Plan: Continue inhalers (7) Nicotine dependence, cigarettes, uncomplicated: Comment: (current smoker - onset 15yo, 1ppd x 52yrs, 50pyh), in lung cancer screening program at [place] Code(s): F17.210 - Nicotine dependence, cigarettes, uncomplicated Orders: Orders XR DEXA axial skeleton Today Z78.0 - Asymptomatic menopausal state Complete Blood Count Auto Diff 6 Months E03.9 - Hypothyroidism, unspecified, E78.5 - Hyperlipidemia, unspecified, I10 - Essential (primary) hypertension, J44.9 - Chronic obstructive pulmonary disease, unspecified Lipid Panel 6 Months E03.9 - Hypothyroidism, unspecified, E78.5 - Hyperlipidemia, unspecified, I10 - Essential (primary) hypertension, J44.9 - Chronic obstructive pulmonary disease, unspecified Comprehensive [place]. Panel Fast 6 Months E03.9 - Hypothyroidism, unspecified, E78.5 - Hyperlipidemia, unspecified, I10 - Essential (primary) hypertension, J44.9 - Chronic obstructive pulmonary disease, unspecified TSH reflex Free T4 6 Months E03.9 - Hypothyroidism, unspecified, E78.5 - Hyperlipidemia, unspecified, I10 - Essential (primary) hypertension, J44.9 - Chronic obstructive pulmonary disease, unspecified Referrals Podiatry Referral M20.30 - Hallux varus (acquired), unspecified foot Coding Level of Care Code Est Pt Prev Care >65y(94965) Diagnoses Postmenopausal Z78.0 Hallux hammertoe M20.30 Hypothyroid E03.9 HTN (hypertension) I10 Hyperlipidemia E78.5 COPD (chronic obstructive pulmonary disease) J44.9 Nicotine dependence, cigarettes, uncomplicated F17.210
[2023-08-04 11:17] VITALS: BP 120/66; PULSE 88; O2SAT 99; BMI 19.7
== END 2023-08-04 11:58 | disposition home or self-care (01) ==
PROVIDERS: PCP Internal Medicine; Visit Provider Internal Medicine
DX: Z00.00 Encounter for general adult medical examination without abnormal findings (principal); E03.9 Hypothyroidism, unspecified; I10 Essential (primary) hypertension; F17.210 Nicotine dependence, cigarettes, uncomplicated; J44.9 Chronic obstructive pulmonary disease, unspecified; Z78.0 Asymptomatic menopausal state; E78.5 Hyperlipidemia, unspecified
CPT/HCPCS: 99397

== ENCOUNTER 2023-08-10 14:55 | Outpatient (REF) | payer MEDICARE, MEDICAID, SELFPAY ==
--- NOTE | ~2023-08-10 | MM_ITS ---
EXAMINATION: BONE DENSITOMETRY CLINICAL INDICATION: Asymptomatic menopausal state. COMPARISON: This is the patient's baseline examination. TECHNIQUE: Using a [employer] DXA System (software version: 13.1) manufactured by [employer], dual-energy x-ray absorptiometry was performed of the lumbar spine and left hip. The images are of good technical quality. Summary results are attached. FINDINGS: LEFT FEMUR, NECK: BMD 0.852 g/cm2, Z-score 0.3, T-score -1.3, osteopenia. LEFT FEMUR, TOTAL: BMD 0.857 g/cm2, Z-score 0.2, T-score -1.2, osteopenia. AP SPINE L1-L4: BMD 1.363 g/cm2, Z-score 3.4, T-score 1.5, normal. IDENTIFIED RISK FACTORS: Anticonvulsant, early menopause, height loss, hysterectomy, low body weight, low calcium intake, secondary osteoporosis, tobacco user (current smoker). HISTORY OF FRACTURE: None listed. MEDICATIONS: Vitamin D. MM/XR DEXA axial skeleton IMPRESSION: 1. DIAGNOSIS: Osteopenia based on the lowest T-score value of -1.3 in the femoral neck applying World Health Organization criteria. 2. 10-YEAR FRACTURE RISK PREDICTION, FRAX: Major osteoporotic fracture (clinical spine, forearm, hip or shoulder) 7.7%. Hip fracture 1.4%. 3. Treatment Recommendations: NOF guidelines recommend consideration for treatment in postmenopausal women and men age 50 and older presenting with the following: -A hip or vertebral (clinical or morphometric) fracture. -T-score less than or equal to -2.5 at the femoral neck or spine after appropriate evaluation to exclude secondary causes. -Low bone mass at the hip or spine and a 10-year fracture probability by FRAX of greater than or equal to 3% for hip fracture or greater than or equal to 20% for major osteoporotic fracture based on the [place] adapted WHO algorithm. 4. Other Recommendations: All treatment decisions require clinical judgment and consideration of individual patient factors, including patient preferences, comorbidities, previous drug use, risk factors not captured in the FRAX model (e.g. frailty, falls, vitamin D deficiency, increased bone turnover, interval significant decline in bone density) and possible under or overestimation of fracture risk by FRAX. Additional medical evaluation for secondary cause of low bone mineral density may be appropriate. FUTURE SCAN RECOMMENDATION: People with diagnosed cases of osteoporosis or at high risk for fracture should have regular bone mineral density tests. For patients eligible for Medicare, routine testing is allowed once every 2 years. The testing frequency can be increased to one year for patients who have rapidly progressing disease, those who are receiving or discontinuing medical therapy to restore bone mass, or have additional risk factors.
== END 2023-08-10 14:56 | disposition home or self-care (01) ==
LOC: HO.MAMMO 14:55
PROVIDERS: PCP Internal Medicine; Visit Provider Internal Medicine
DX: Z13.820 Encounter for screening for osteoporosis (principal); Z78.0 Asymptomatic menopausal state
CPT/HCPCS: 77080

== ENCOUNTER → 2023-08-10 15:00 | Outpatient (BNV) | payer MEDICARE, MEDICAID, SELFPAY | PROVIDERS: PCP Internal Medicine; Visit Provider Radiology Diagnostic Radiology | DX: M85.852 Other specified disorders of bone density and structure, left thigh (principal); Z13.820 Encounter for screening for osteoporosis | CPT/HCPCS: 77080 ==

== ENCOUNTER 2023-08-31 10:48 | Outpatient (AMB) | payer MEDICARE, MEDICAID, SELFPAY ==
--- NOTE | 2023-08-31 10:50 | MHC.OFFVIS ---
Intake Vital Signs 08/31/23 11:01 Height 5 ft 6 in Weight 122 lb 12.76 oz BMI 19.8 BP 122/62 Blood Pressure Location Rt brachial Position Sitting Pulse 96 Pulse Source Pulse Oximeter Temp 98.2 F Temp Source Skin Pulse Oximetry (%) 97 Oxygen Delivery Method Room Air Intake Visit Reasons: Lumbago with sciatica, right side Intake Note: Patient presents today to follow up on lumbargo with sciatica. [employer] Required: No Accompanied by: Self / Same As Patient Allergies docetaxel [From TAXOTERE] Allergy (Intermediate, Verified 08/31/23 10:59) TONGUE SWELLING Medication List - Last Reconciled 08/31/23 by Corby Bae MD albuterol sulfate 90 mcg/actuation (Ventolin HFA) 2 puffs inhalation Q6H PRN budesonide-formoterol 80-4.5 mcg/actuation (Symbicort) 2 puffs PO BID cholecalciferol (vitamin D3) 50 mcg PO DAILY diphenhydramine HCl (Benadryl) 25 mg PO TID PRN fluticasone propionate 50 mcg/actuation 2 sprays intranasal DAILY gabapentin 400 mg PO QID levothyroxine 112 mcg PO QAM lisinopril 10 mg PO DAILY methocarbamol 750 mg PO Q8H PRN montelukast 10 mg PO BEDTIME omeprazole 20 mg PO DAILY pravastatin 40 mg PO DAILY HPI HPI Comments History of Present Illness Details The patient presents for evaluation of her lumbar osteoarthritis with sore sciatica. She was last seen about a year and half ago by Zulma. She has remained on methocarbamol 750 t.i.d. and gabapentin 400 q.i.d.;she had stopped the naproxen. She takes occasional acetaminophen with some benefit. She has lost some weight. Most of this she says is due to the stress of caring for her partner who was in the hospital for 2 months with lung cancer and subsequent surgical complications. She also had a recent bone density test and tells me she has osteopenia. She does not seem to have any sedation with the methocarbamol or the gabapentin at this point. She is still smoking about 1 pack per day. She tries to get her calcium through the diet and takes a vitamin-D supplement. She has no history of fragility fractures. [facility] Medical History (Updated 10/05/23 @ 12:57 by Corby Bae MD) History of colon polyps Nicotine dependence, cigarettes, uncomplicated Allergies Hepatitis C infection History of breast cancer Spinal stenosis HTN (hypertension) ETOH abuse Osteoarthritis Anxiety Hypothyroid COPD (chronic obstructive pulmonary disease) Asthma Surgical History History of colonoscopy History of total hysterectomy History of tonsillectomy History of appendectomy History of mastectomy Family History Mother Breast cancer Skin cancer Throat cancer Colon cancer Brother No problems noted. Brother No problems noted. Sister Substance use disorder Maternal Grandfather Colon cancer Maternal Uncle Colon cancer Father Substance use disorder Social History Housing: House Are you a primary school child care attendant to a significant other at home: No Do you presently have visiting nurse or other home services: No Patient Tobacco Use Status: Current everyday Tobacco user Tobacco use type: Cigarette Cigarette Packs Per Day: 1 Cigarettes Per Day: 20 Years Smoked: (onset 15yo, 1ppd x 52yrs, 50pyh) e-Cigarette/Vaping Use: Never Used Current occupational status: unemployed Cognitive needs: No Hearing needs: No Vision needs: Yes Review of Systems Const Details: Some weight loss in the last year attributed to stress. Negative for appetite change, fever, chills, malaise and fatigue Eyes Details: Negative for vision change, dry eyes,headaches and dizziness Card Details: Negative chest pain, edema and syncope Resp Details: Negative for SOB, cough and wheezing GI Details: Negative indigestion/heartburn, nausea, abdominal pain, bowel changes, diarrhea, constipation and bloody stool. Psych Details: stress of partner's lung cancer Christian/Lymph Details: Negative for excessive bruising or bleeding. Physical Exam Vital Signs: Last Vital Signs Temp 98.2 F 08/31/23 11:01 Pulse 96 08/31/23 11:01 BP 122/62 08/31/23 11:01 Pulse Ox 97 08/31/23 11:01 Oxygen Delivery Method Room Air 08/31/23 11:01 BMI result Body Mass Index 19.8 APPEARANCE: Patient in no acute distress EYES no redness, pupils equal and reactive to light, eyelids normal. No temporal artery tenderness, redness or swelling NOSE/SINUS: Airflow through both nares, no nasal discharge, no bleeding THROAT: Oral mucosa moist, no ulcerations NECK: No thyromegaly or masses, no adenopathy, trachea midline. HEART: Regulrar rhythm, S1-S2 heard, no murmurs, rubs or gallops. LUNG: Clear to percussion and auscultation ABD: Normal bowel sounds, no organomegaly, masses or tenderness. EXTREMITIES: No edema, no calf tenderness, normal peripheral pulses. JOINT EXAM: ?? Cervical Spine:.? Full range of motion without pain; no tenderness. Thoracic Spine:.? No scoliosis.? No tenderness on palpation. Lumbar Spine:.? Some scoliosis. Mild pain with flexion at 90 degrees. No tenderness. Straight leg raising is negative. Chest Wall:.? Some bony prominence at the right sternoclavicular joint without tenderness. Elsewhere there is no tenderness, swelling, increased warmth or erythema. Hands:.? Normal pain-free range of motion with mild bony enlargement at the PIP joints. These are not tender. There is no flexor tendon triggering, thenar atrophy or sensory loss. Other joints have no tenderness, swelling, increased warmth or erythema. Able to make a full fist and has a good tavern car attendant strength. Wrists:.? Normal pain-free range of motion without tenderness, swelling, increased warmth or erythema. Elbows:. Normal pain-free range of motion without tenderness, swelling, increased warmth or erythema. Shoulders:.?? Full range of motion without pain. No tenderness, weakness, swelling, increased warmth or erythema. Hips:.? Full range of motion without pain. Hip bursa:.? No tenderness. Knees:.?? Normal pain-free range of motion without tenderness, swelling, increased warmth or erythema.? There is slight patellofemoral crepitus without effusion, redness or warmth. Ankles:.? Normal pain-free range of motion without tenderness, swelling, increased warmth or erythema. Feet:.? Normal pain-free range of motion without tenderness, swelling, increased warmth or erythema. Tender points:.? No tenderness to digital palpation at the occiput, trapezius, second rib, lateral epicondyle, knees, greater trochanter and gluteal area bilaterally. ? Results Reviewed Results Reviewed: [facility] [address] [place], [place] [address] Mammography Report Signed Patient: Masha Garcia MR#: [id number] : 1955 Acct:[id number] Age/Sex: 67 / F ADM Date: 08/10/[address]: Julieth Hendrickson MD Ordering Physician: Julieth Hendrickson MD Results: Date of Service: 08/10/23 Follow Up: Procedure(s): XR DEXA axial skeleton Accession Number(s): [id number] cc: Julieth Hendrickson MD~ EXAMINATION: BONE DENSITOMETRY CLINICAL INDICATION: Asymptomatic menopausal state. COMPARISON: This is the patient's baseline examination. TECHNIQUE: Using a [employer] DXA System (software version: 13.1) manufactured by [employer], dual-energy x-ray absorptiometry was performed of the lumbar spine and left hip. The images are of good technical quality. Summary results are attached. FINDINGS: LEFT FEMUR, NECK: BMD 0.852 g/cm2, Z-score 0.3, T-score -1.3, osteopenia. LEFT FEMUR, TOTAL: BMD 0.857 g/cm2, Z-score 0.2, T-score -1.2, osteopenia. AP SPINE L1-L4: BMD 1.363 g/cm2, Z-score 3.4, T-score 1.5, normal. IDENTIFIED RISK FACTORS: Anticonvulsant, early menopause, height loss, hysterectomy, low body weight, low calcium intake, secondary osteoporosis, tobacco user (current smoker). HISTORY OF FRACTURE: None listed. MEDICATIONS: Vitamin D. MM/XR DEXA axial skeleton IMPRESSION: 1. DIAGNOSIS: Osteopenia based on the lowest T-score value of -1.3 in the femoral neck applying World Health Organization criteria. 2. 10-YEAR FRACTURE RISK PREDICTION, FRAX: Major osteoporotic fracture (clinical spine, forearm, hip or shoulder) 7.7%. Hip fracture 1.4%. 3. Treatment Recommendations: NOF guidelines recommend consideration for treatment in postmenopausal women and men age 50 and older presenting with the following: -A hip or vertebral (clinical or morphometric) fracture. -T-score less than or equal to -2.5 at the femoral neck or spine after appropriate evaluation to exclude secondary causes. -Low bone mass at the hip or spine and a 10-year fracture probability by FRAX of greater than or equal to 3% for hip fracture or greater than or equal to 20% for major osteoporotic fracture based on the [place] adapted WHO algorithm. 4. Other Recommendations: All treatment decisions require clinical judgment and consideration of individual patient factors, including patient preferences, comorbidities, previous drug use, risk factors not captured in the FRAX model (e.g. frailty, falls, vitamin D deficiency, increased bone turnover, interval significant decline in bone density) and possible under or overestimation of fracture risk by FRAX. Additional medical evaluation for secondary cause of low bone mineral density may be appropriate. FUTURE SCAN RECOMMENDATION: People with diagnosed cases of osteoporosis or at high risk for fracture should have regular bone mineral density tests. For patients eligible for Medicare, routine testing is allowed once every 2 years. The testing frequency can be increased to one year for patients who have rapidly progressing disease, those who are receiving or discontinuing medical therapy to restore bone mass, or have additional risk factors. Dictated By: Daniel Plasencia MD Assessment & Plan Assessment & Plan (1) Osteopenia: Comment: T-scores 07/2023: fem neck -1.3, femur -1.2 LS spine 1.5. Frax 7.7%/1.4% Code(s): M85.80 - Other specified disorders of bone density and structure, unspecified site (2) Lumbago with sciatica, right side: Code(s): M54.41 - Lumbago with sciatica, right side Qualifiers: Back pain laterality: bilateral Chronicity: chronic Qualified Code(s): M54.41 - Lumbago with sciatica, right side; G89.29 - Other chronic pain Plan Her back pain and sciatica symptoms seem controlled with current regimen. She denies any sedation with the gabapentin and methocarbamol. She does not seem to be missing the naproxen which was stopped because of her age and history of hypertension. She has lost weight, likely related to the stress of her partners illness. He is back home now so that could help her out. She has osteopenia and should continue with vitamin-D supplementation and weight-bearing exercises. I would not recommend antiresorptive therapy at this point. A repeat bone density in 2 years would be reasonable. We will continue with the gabapentin and methocarbamol and see her back in about a year. Coding Level of Care Code Est Pt Level 3 (92291) Diagnoses Osteopenia M85.80 Chronic bilateral low back pain with right-sided sciatica M54.41; G89.29 Back pain laterality: bilateral Chronicity: chronic
[2023-08-31 11:01] VITALS: BP 122/62; PULSE 96; TEMP 36.8; O2SAT 97; BMI 19.8
== END 2023-08-31 11:29 | disposition home or self-care (01) ==
PROVIDERS: PCP Internal Medicine; Visit Provider Internal Medicine Rheumatology
DX: M85.80 Other specified disorders of bone density and structure, unspecified site (principal); M54.41 Lumbago with sciatica, right side; G89.29 Other chronic pain
CPT/HCPCS: 99213

== ENCOUNTER → 2023-08-31 10:48 | Outpatient (BNVA) | payer MEDICARE, MEDICAID, SELFPAY | PROVIDERS: PCP Internal Medicine; Visit Provider Internal Medicine Rheumatology | DX: M54.41 Lumbago with sciatica, right side (principal); M85.80 Other specified disorders of bone density and structure, unspecified site; G89.29 Other chronic pain; F17.210 Nicotine dependence, cigarettes, uncomplicated; Z78.0 Asymptomatic menopausal state; Z90.710 Acquired absence of both cervix and uterus; Z79.899 Other long term (current) drug therapy | CPT/HCPCS: 99212 ==

== ENCOUNTER 2024-02-15 13:19 | Outpatient (REF) | payer MEDICARE, SELFPAY ==
--- NOTE | ~2024-02-15 | CT_ITS ---
EXAMINATION: CT CHEST SCREENING CLINICAL INFORMATION: Nicotine dependence. Current smoker at 1 pack per day with 50 pack-year history. COMPARISON: CT lung screening 01/10/2023. TECHNIQUE: Multidetector volumetric CT imaging of the chest is performed without contrast using low dose technique. Additional 2D coronal and sagittal reformatted images and axial 3D maximum intensity projection (MIP) images are generated on the CT workstation. This CT examination was performed using dose optimization techniques as appropriate, variously including the following: *Automated exposure control *Adjustment of mA and/or kV according to patient size (this includes techniques or standardized protocols for targeted exams where dose is matched to indication/reason for exam; i.e. extremities or head) *Use of iterative reconstruction technique DLP: 71 mGy-cm FINDINGS: LUNGS: Moderate emphysematous changes are present. Mild bronchial thickening is seen. There is right basilar atelectasis. There are multiple new areas of ground-glass opacity seen predominantly in the right lung with some mild changes in the left lung. These are branching and are of varied density some quite subtle (for example right upper lobe 5:103) and other areas considerably denser (for example inferior right upper lobe measuring 2.7 x 1.6 x 1.2 cm (5:198). Dior images of all abnormalities have been saved. PULMONARY NODULES: Pulmonary nodules are seen with a polygonal perifissural 5 mm left lower lobe nodule consistent with a fissural lymph node. There is a 3 mm anterior left upper lobe nodule (5:199). 3 mm left upper lobe nodule (5:147). All of these findings are unchanged when compared to prior. MEDIASTINUM: The mediastinum is normal. CORONARY ARTERY CALCIFICATION: Mild to moderate. PLEURA: There is no pleural effusion. No pleural mass or thickening. AXILLA: No lymphadenopathy. UPPER ABDOMEN: Hypoattenuating masses in the liver are unchanged. OSSEOUS STRUCTURES: Scoliosis and degenerative changes. No worrisome bony destructive lesions. CT/CT lung screening IMPRESSION: Small stable pulmonary nodules the largest measuring 5 mm. Moderately extensive new ground-glass opacities with the largest measuring 2.7 cm. As none of these densities are greater than 30 mm in size they classified as benign, and I suspect secondary to inflammatory/infectious etiologies. ASSESSMENT: Lung-RADS category 2: Benign. RECOMMENDATION: Routine annual low-dose CT screening in 12 months.
== END 2024-02-15 13:20 | disposition home or self-care (01) ==
LOC: HO.CT 13:19
PROVIDERS: Visit Provider Nurse Practitioner Family
DX: Z12.2 Encounter for screening for malignant neoplasm of respiratory organs (principal); F17.210 Nicotine dependence, cigarettes, uncomplicated
CPT/HCPCS: 71271

== ENCOUNTER 2024-03-22 09:59 | Outpatient (REF) | payer MEDICARE, SELFPAY ==
[2024-03-22 13:24] LABS: MANUAL DIFF FLAG NO
[2024-03-22 13:38] LABS: Basophils Percent Auto 0.7 % (0-2); Eosinophils Absolute Auto 0.1 X10*3/uL (0.0-0.4); Eosinophils Percent Auto 0.8 % (0-4); Hematocrit 38.2 % (37.0-47.0); Hemoglobin 12.7 g/dl (12.0-16.0); Imm Gran Abs Auto 0.02 X10*3/uL (0.00-0.03); Imm Gran Pct Auto 0.3 % (0.0-0.4); Lymphocytes Absolute Auto 1.5 X10*3/uL (1.2-4.9); Lymphocytes Percent Auto 25.5 % (20-40); Mean Corpuscular HGB Conc 33.2 g/dl (31.0-35.0); Mean Corpuscular Hemoglobin 31.6 pg (27.0-33.0); Mean Platelet Volume 10.4 fL (9.4-12.3); Monocytes Absolute Auto 0.3 X10*3/uL (0.1-1.2); Monocytes Percent Auto 4.9 % (2-11); Neutrophils Percent Auto 67.8 % (45-73); Platelet Count 366 X10*3/uL (160-400); Red Blood Count 4.02 X10*6/uL (4.20-5.50); Red Cell Distribution Width 12.4 % (11.0-16.0); White Blood Count 5.9 X10*3/uL (4.8-10.8)
[2024-03-22 14:06] LABS: Alanine Aminotransferase 11 U/L (0-31); Albumin Level 4.1 g/dL (3.5-5.0); Alkaline Phosphatase 47 U/L (39-117); Anion Gap 10 (12-20); Aspartate Amino Transferase 19 U/L (5-31); Bilirubin Total 0.3 mg/dL (0.0-1.0); Blood Urea Nitrogen 8 mg/dL (9-16); Calcium 9.5 mg/dL (8.4-10.2); Carbon Dioxide 28 mmol/L (22-29); Chloride 103 mmol/L (96-108); Cholesterol 165 mg/dL (<200); Estimated Glomerular Filt Rate > 60; Glucose Fasting 111 mg/dL (60-99); HDL Cholesterol 65 mg/dL (>40); LDL Cholesterol Calculated 86 mg/dL (<100); Potassium 4.3 mmol/L (3.3-5.1); Sodium 137 mmol/L (135-145); Total Protein 7.5 g/dL (6.5-8.0); Triglycerides 73 mg/dL (<150)
[2024-03-22 14:25] LABS: TSH reflex Free T4 0.07 uIU/mL (0.32-4.0)
[2024-03-22 14:55] LABS: Free T4 (Free Thyroxine) 1.13 ng/dL (0.71-1.85)
== END 2024-03-22 10:00 | disposition home or self-care (01) ==
LOC: HO.HMGCLDS 09:59
PROVIDERS: PCP Internal Medicine; Visit Provider Internal Medicine
DX: E03.9 Hypothyroidism, unspecified (principal); I10 Essential (primary) hypertension; E78.5 Hyperlipidemia, unspecified; J44.9 Chronic obstructive pulmonary disease, unspecified
CPT/HCPCS: 36415; 80053; 80061; 84439; 84443; 85025

== ENCOUNTER 2024-03-26 09:32 | Outpatient (AMB) | payer MEDICARE, SELFPAY ==
[2024-03-26 09:39] VITALS: BP 110/66; PULSE 69; O2SAT 100; BMI 22.1
--- NOTE | 2024-03-26 09:39 | MHC.PC.OV ---
Vital Signs 03/26/24 09:39 Height 5 ft 6 in Weight 137 lb BMI 22.1 BP 110/66 Blood Pressure Location Lt brachial Position Sitting Pulse 69 Pulse Source Pulse Oximeter Pulse Oximetry (%) 100 Oxygen Delivery Method Room Air Intake Visit Reasons: 6 Month follow up Intake Note: Pt is here today for 6 months follow up visit. Allergies docetaxel [From TAXOTERE] Allergy (Intermediate, Verified 03/26/24 09:41) TONGUE SWELLING Medication List - Last Reconciled 03/26/24 by Julieth Hendrickson MD albuterol sulfate 90 mcg/actuation (Ventolin HFA) 2 puffs inhalation Q6H PRN budesonide-formoterol 80-4.5 mcg/actuation (Symbicort) 2 puffs PO BID cholecalciferol (vitamin D3) 50 mcg PO DAILY diphenhydramine HCl (Benadryl) 25 mg PO TID PRN fluticasone propionate 50 mcg/actuation 2 sprays intranasal DAILY gabapentin 400 mg PO QID levothyroxine 100 mcg PO DAILY lisinopril 10 mg PO DAILY methocarbamol 750 mg PO Q8H PRN montelukast 10 mg PO BEDTIME omeprazole 20 mg PO DAILY pravastatin 40 mg PO DAILY Tobacco use date assessed: 03/26/24 Fall risk assessment: No Falls in past year Last assessed Fall Risk: 03/26/24 Dental Screening Dental Screen Date: 03/26/24 Did you have a dental visit in the last 12 months?: Yes Did you have a dental problem in the last 6 months where you did not have access to dental care?: No Was dental information given to patient?: Patient has dentist HPI 6 Month follow up HPI Details Pt presents for f/u COPD,hyperlipid, hypothyroid, HTN, stable on meds. Patient had an episode of upper respiratory infection in mid January which lasted for a week and resolved completely. She denies any residual cough or shortness a breath or wheezing. She has been using Symbicort and taking montelukast for chronic asthma. Patient had lung cancer screening CT in January which showed small stable nodules largest 5 mm and moderately extensive new ground-glass opacities the largest 2.7 cm suspected inflammatory or infectious etiology. 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 Relieving factors For chronic asthma [facility] Medical History (Updated 03/26/24 @ 10:30 by Julieth Hendrickson MD) History of colon polyps Nicotine dependence, cigarettes, uncomplicated Allergies Hepatitis C infection History of breast cancer Spinal stenosis HTN (hypertension) ETOH abuse Osteoarthritis Anxiety Hypothyroid COPD (chronic obstructive pulmonary disease) Asthma Surgical History History of colonoscopy History of total hysterectomy History of tonsillectomy History of appendectomy History of mastectomy Family History Mother Breast cancer Skin cancer Throat cancer Colon cancer Brother No problems noted. Brother No problems noted. Sister Substance use disorder Maternal Grandfather Colon cancer Maternal Uncle Colon cancer Father Substance use disorder Social History Housing: House Are you a primary care management assistant to a significant other at home: No Do you presently have visiting nurse or other home services: No Patient Tobacco Use Status: Current everyday Tobacco user Tobacco use type: Cigarette Cigarette Packs Per Day: 1 Cigarettes Per Day: 20 Years Smoked: (onset 15yo, 1ppd x 52yrs, 50pyh) Packs Per Year: 0 Packs per year/per ci.00 e-Cigarette/Vaping Use: Never Used service: No Current occupational status: unemployed Cognitive needs: No Hearing needs: No Vision needs: Yes Questionnaire PHQ-9 Over the last 2 weeks, how often have you been bothered by any of the following problems? 1. Little interest or pleasure in doing things: not at all 2. Feeling down, depressed, or hopeless: not at all 3. Trouble falling or staying asleep, or sleeping too much: not at all 4. Feeling tired or having little energy: not at all 5. Poor appetite or overeating: not at all 6. Feeling bad about yourself - or that you are a failure or have let yourself or your family down: not at all 7. Trouble concentrating on things, such as reading the newspaper or watching television: not at all 8. Moving or speaking so slowly that other people could have noticed. Or the opposite - being so fidgety or restless that you have been moving around a lot more than usual: not at all 9. Thoughts that you would be better off or of hurting yourself in some way: not at all Total score: 0 Depression Screening Interpretation: Negative Depression Screening Done: Yes Source: Developed by Drs. Jose Brito, Gregorio Howard and colleagues, with an educational jake from [employer]. Thrive Questionnaire Date Thrive assessed: 03/26/24 I am a: Patient What is your living situation today?: I have a steady place to live Within the past 12 months, did the food you bought not last and you didn't have the money to get more?: Never true Within the past 12 months, did you worry whether your food would run out before you got money to buy more?: Never true Do you have trouble paying for medicines?: No Do you have trouble getting transportation to medical appointments?: No Do you have trouble paying your heating and electricity bill?: No Do you have trouble taking care of your child, family member or friend?: No Do you have trouble with day-to-day activities such as bathing, preparing meals, shopping, managing finances, etc.?: No Are you currently unemployed and looking for a job?: No Are you interested in more education?: No Please select the resources that you would like help with: None THRIVE Score: 0 AUDIT C Alcohol Use Questionnaire (AUDIT-C) 1. How often do you have a drink containing alcohol?: Never 3. How often do you have six or more drinks on one occasion?: Never Total Score: 0 ZAID-7 AMB Questionnaire ZAID-7 Date ZAID - 7 assessed: 03/26/24 Feeling nervous, anxious, or on edge: 0 = Not at all Not being able to stop or control worryin = Not at all Worrying too much about different things: 0 = Not at all Trouble relaxin = Not at all Being so restless that it is hard to sit still: 0 = Not at all Becoming easily annoyed or irritable: 0 = Not at all Feeling afraid as if something awful might happen: 0 = Not at all Total ZAID-7 score (0-4 normal; 5-9 mild; 10-14 moderate; 15-21 severe): 0 Source: Developed by Holley Mendes Kurt Kroenke and colleagues, with an educational jake from [employer]. Review of Systems Const All systems reviewed & are unremarkable except as noted in HPI and below Eyes Reports no additional complaints ENT Reports no additional complaints Card Reports no additional complaints Resp Reports no additional complaints GI Reports no additional complaints Reports no additional complaints Physical exam (Primary Care) Vital Signs: Last Vital Signs Pulse 69 03/26/24 09:39 BP 110/66 03/26/24 09:39 Pulse Ox 100 03/26/24 09:39 Oxygen Delivery Method Room Air 03/26/24 09:39 BMI result Body Mass Index 22.1 Tobacco/Smoking Status: Tobacco use Status Tobacco use date assessed 03/26/24 03/26/24 09:45 Patient Tobacco Use Status Current everyday Tobacco 03/26/24 09:45 Tobacco use type Cigarette 03/26/24 09:45 e-Cigarette/Vaping Use Never Used 03/26/24 09:45 PHQ-9: PHQ-9 Score PHQ-9: Total score 0 03/26/24 09:45 Depression Screening Interpretation: Negative Thrive Assessment: Date of Thrive Assessment Date Thrive assessed 03/26/24 03/26/24 09:45 Const General: no acute distress HENMT Head: Yes normal to inspection Throat: Yes posterior oropharynx normal Neck Neck: Yes supple Resp Effort & Inspection: normal respiratory effort Auscultation: clear to auscultation bilaterally Cardio Rhythm: regular rhythm Heart sounds: S1 normal heart sound present and S2 normal heart sound present GI Inspection: Yes normal to inspection Assessment and Plan Assessment & Plan (1) COPD (chronic obstructive pulmonary disease): Comment: Patient cannot tolerate powder inhalers including Advair Spiriva or Trelegy Code(s): J44.9 - Chronic obstructive pulmonary disease, unspecified Plan: Continue current treatment, patient has been fighting down on tobacco down to half a pack a day (2) Hypothyroid: Code(s): E03.9 - Hypothyroidism, unspecified Plan: Decrease levothyroxine to 100 mcg and repeat TSH in 2 months (3) Asthma: Comment: Controlled on montelukast and Symbicort 80 mcg Code(s): J45.909 - Unspecified asthma, uncomplicated Plan: Continue current medications (4) HTN (hypertension): Code(s): I10 - Essential (primary) hypertension Plan: Continue Lisinopril (5) Hyperlipidemia: Code(s): E78.5 - Hyperlipidemia, unspecified Plan: Continue statin , follow-up in 6 months Orders: Orders TSH reflex Free T4 2 Months E03.9 - Hypothyroidism, unspecified Comprehensive [place]. Panel Fast 6 Months E03.9 - Hypothyroidism, unspecified, E78.5 - Hyperlipidemia, unspecified, I10 - Essential (primary) hypertension, J44.9 - Chronic obstructive pulmonary disease, unspecified, J45.909 - Unspecified asthma, uncomplicated Lipid Panel 6 Months E03.9 - Hypothyroidism, unspecified, E78.5 - Hyperlipidemia, unspecified, I10 - Essential (primary) hypertension, J44.9 - Chronic obstructive pulmonary disease, unspecified, J45.909 - Unspecified asthma, uncomplicated Complete Blood Count Auto Diff 6 Months E03.9 - Hypothyroidism, unspecified, E78.5 - Hyperlipidemia, unspecified, I10 - Essential (primary) hypertension, J44.9 - Chronic obstructive pulmonary disease, unspecified, J45.909 - Unspecified asthma, uncomplicated TSH reflex Free T4 6 Months E03.9 - Hypothyroidism, unspecified, E78.5 - Hyperlipidemia, unspecified, I10 - Essential (primary) hypertension, J44.9 - Chronic obstructive pulmonary disease, unspecified, J45.909 - Unspecified asthma, uncomplicated Vitamin D 25-OH Total 6 Months E03.9 - Hypothyroidism, unspecified, E78.5 - Hyperlipidemia, unspecified, I10 - Essential (primary) hypertension, J44.9 - Chronic obstructive pulmonary disease, unspecified, J45.909 - Unspecified asthma, uncomplicated Medications: New levothyroxine 100 mcg PO DAILY 90 tabs 4RF Discontinued levothyroxine Discontinued Reason: Doctor's Order 112 mcg PO QAM 90 tabs 3RF Coding Level of Care Code Est Pt Level 4 (16924) Diagnoses COPD (chronic obstructive pulmonary disease) J44.9 Hypothyroid E03.9 Asthma J45.909 HTN (hypertension) I10 Hyperlipidemia E78.5
== END 2024-03-26 10:39 | disposition home or self-care (01) ==
PROVIDERS: PCP Internal Medicine; Visit Provider Internal Medicine
DX: J44.9 Chronic obstructive pulmonary disease, unspecified (principal); E03.9 Hypothyroidism, unspecified; J45.909 Unspecified asthma, uncomplicated; I10 Essential (primary) hypertension; E78.5 Hyperlipidemia, unspecified
CPT/HCPCS: 99214

== ENCOUNTER 2024-04-09 13:29 | Outpatient (AMB) | payer MEDICARE, SELFPAY ==
[2024-04-09 13:32] VITALS: BP 117/58; PULSE 82; O2SAT 97; BMI 21.7
--- NOTE | 2024-04-09 13:32 | MHC.OFFVIS ---
Vital Signs 04/09/24 13:32 Height 5 ft 6 in Weight 134 lb 7.712 oz BMI 21.7 BP 117/58 L Blood Pressure Location Rt brachial Position Sitting Pulse 82 Pulse Source Doppler Pulse Oximetry (%) 97 Oxygen Delivery Method Room Air Intake Visit Reasons: copd Allergies docetaxel [From TAXOTERE] Allergy (Intermediate, Verified 03/26/24 09:41) TONGUE SWELLING HPI HPI copd: Details: 68-year-old lady, active 40+ pack-year smoker with underlying asthma/COPD overlap syndrome in environmental allergies referred from lung cancer screening program after recent CT scan demonstrated bilateral ground-glass opacities. 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 She denies recent acute infections. Denies family history of lung disease. [facility] Medical History (Updated 04/09/24 @ 13:53 by Kalen Anderson MD) History of colon polyps Nicotine dependence, cigarettes, uncomplicated Allergies Hepatitis C infection History of breast cancer Spinal stenosis HTN (hypertension) ETOH abuse Osteoarthritis Anxiety Hypothyroid COPD (chronic obstructive pulmonary disease) Asthma Surgical History History of colonoscopy History of total hysterectomy History of tonsillectomy History of appendectomy History of mastectomy Family History Mother Breast cancer Skin cancer Throat cancer Colon cancer Brother No problems noted. Brother No problems noted. Sister Substance use disorder Maternal Grandfather Colon cancer Maternal Uncle Colon cancer Father Substance use disorder Social History Housing: House Are you a primary multi care technician to a significant other at home: No Do you presently have visiting nurse or other home services: No Patient Tobacco Use Status: Current everyday Tobacco user Tobacco use type: Cigarette Cigarette Packs Per Day: 1 Cigarettes Per Day: 20 Years Smoked: (onset 15yo, 1ppd x 52yrs, 50pyh) e-Cigarette/Vaping Use: Never Used service: No Current occupational status: unemployed Cognitive needs: No Hearing needs: No Vision needs: Yes Review of Systems Const Denies daytime sleepiness, Denies excessive sweating, Denies fatigue, Denies fever(s), Denies lethargy, Denies malaise, Denies night sweats, Denies snoring and Denies weight loss Eyes Denies blurry vision and Denies itchy eyes ENT Denies nasal congestion, Denies post nasal drip, Denies sinus pain, Denies sinus pressure and Denies other ( Thrush) Card Denies chest pain, Denies pedal edema, Denies dyspnea, Denies orthopnea and Denies paroxysmal nocturnal dyspnea Resp Denies cough, Denies hemoptysis, Denies excessive phlegm production, Denies dyspnea, Denies snoring and Denies wheezing GI Denies abdominal pain and Denies heartburn Musc Denies myalgias, Denies arthralgias and Denies joint swelling Skin/Breast Denies rash Neuro Denies memory loss and Denies seizure-like activity Psych Denies abnormal sleep pattern, Denies anxiety and Denies memory loss Endo Denies excessive sweating, Denies fatigue and Denies heat intolerance Christian/Lymph Denies easy bruising Aller/Immun Denies itchy eyes, Denies seasonal rhinorrhea and Denies wheezing Physical Exam Vital Signs: Last Vital Signs Pulse 82 04/09/24 13:32 BP 117/58 L 04/09/24 13:32 Pulse Ox 97 04/09/24 13:32 Oxygen Delivery Method Room Air 04/09/24 13:32 BMI result Body Mass Index 21.7 Const General: no acute distress and alert Nutritional Appearance: not obese Orientation/consciousness: Other orientation findings ( oriented) HEENT Head: Yes atraumatic Eyes General: appearance normal, both eyes and all related structures Sclerae: sclerae normal EOM: EOMs intact bilaterally Neck Neck: Yes supple Lymphatic: no lymphadenopathy noted Resp Effort & Inspection: normal respiratory effort and no use of accessory muscles Auscultation: clear to auscultation bilaterally Cardio Rate: regular rate Rhythm: regular rhythm Heart sounds: no gallops, no murmurs and no rubs Skin General skin exam: other ( warm) Extrem General: No clubbing, No cyanosis and No edema Assessment & Plan Assessment & Plan (1) Asthma-COPD overlap syndrome: Code(s): J44.89 - Other specified chronic obstructive pulmonary disease Category: Medical Plan: At this time reasonably well controlled on Symbicort and albuterol MDI. Continue current regimen. (2) Abnormal CT scan: Code(s): R93.89 - Abnormal findings on diagnostic imaging of other specified body structures Category: Medical Plan: Appears to be inflammatory in nature, will repeat CT chest 6 months from prior scan. (3) Environmental allergies: Code(s): Z91.09 - Other allergy status, other than to drugs and biological substances Category: Medical Plan: Will obtain IgE level, CBC with differential, and RAST panel for further evaluation. Orders: Orders Complete Blood Count Auto Diff Today J45.909 - Unspecified asthma, uncomplicated CT chest wo IV con Today R93.89 - Abnormal findings on diagnostic imaging of other specified body structures PFT pulmonary function test Today J44.9 - Chronic obstructive pulmonary disease, unspecified Resp Allergy Profile Region I Today J45.909 - Unspecified asthma, uncomplicated Coding Level of Care Code New Pt Level 4 (14867) Diagnoses Asthma-COPD overlap syndrome J44.[address] scan R93.89 Environmental allergies Z91.09
== END 2024-04-09 14:00 | disposition home or self-care (01) ==
PROVIDERS: PCP Internal Medicine; Visit Provider Internal Medicine Pulmonary Disease
DX: J44.89 Other specified chronic obstructive pulmonary disease (principal); R93.89 Abnormal findings on diagnostic imaging of other specified body structures; Z91.09 Other allergy status, other than to drugs and biological substances
CPT/HCPCS: 99204

== ENCOUNTER → 2024-04-09 13:29 | Outpatient (BNVA) | payer MEDICARE, SELFPAY | PROVIDERS: PCP Internal Medicine; Visit Provider Internal Medicine Pulmonary Disease | DX: J44.89 Other specified chronic obstructive pulmonary disease (principal); R93.89 Abnormal findings on diagnostic imaging of other specified body structures; Z91.09 Other allergy status, other than to drugs and biological substances; Z79.899 Other long term (current) drug therapy | CPT/HCPCS: 99202 ==

== ENCOUNTER 2024-05-14 12:54 | Outpatient (REF) | payer MEDICARE, SELFPAY ==
--- NOTE | ~2024-05-14 | CT_ITS ---
EXAMINATION: CT CHEST WITHOUT CONTRAST CLINICAL INFORMATION: Abnormal findings on diagnostic imaging of other specified body part. Follow-up findings lung screening CT 02/15/2024. COMPARISON: CT lung screening 02/15/2024, 01/10/2023, 01/14/2022. TECHNIQUE: Multidetector volumetric CT imaging of the chest was done. Axial MIP volume rendering provided. Sagittal and coronal reformatted images were obtained. This CT examination was performed using dose optimization techniques as appropriate, variously including the following: *Automated exposure control *Adjustment of mA and/or kV according to patient size (this includes techniques or standardized protocols for targeted exams where dose is matched to indication/reason for exam; i.e. 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 Aorta is calcified. Dextroconvex thoracolumbar scoliosis. LUNGS: -Mild biapical pleural parenchymal scarring. -Mild centrilobular and paraseptal emphysema. -Previously seen groundglass opacities scattered in the lower lobes have resolved. No persistent abnormal consolidation or groundglass opacity. -Mild linear scarring in the medial right lower lobe is present, as well as the medial left lower lobe. -There is a small thin-walled pneumatocele in the medial left lower lobe. -4 mm nodule posterior right middle lobe abutting the major fissure is stable and consistent with intrapulmonary lymph node (series 5, image 324) -3 mm nodule in the superior segment left lower lobe is unchanged (series 5, image 183). -4 mm fissural-based nodule left mid major fissure, unchanged, intrapulmonary lymph node. -4 mm lymph node in the right medial major fissure, unchanged and consistent with intrapulmonary lymph node (series 5, image 324). -No new nodules or suspicious nodules. -Small airways appear normal. Trachea is normal. Mild degree of secretions seen at the bifurcation of the right mainstem bronchus. PLEURA: There is no pleural effusion. No pleural mass or thickening. MEDIASTINUM: -No definite thyroid abnormality. -Aorta is moderately calcified but normal in caliber and course. -Esophagus is normal. There is a small type I hiatus hernia. -No mediastinal or hilar lymphadenopathy is present. -Great vessels branch normally. -Pulmonary artery is normal in size. -Heart size is normal. There is no pericardial effusion. CORONARY ARTERY CALCIFICATION: There is mild three-vessel coronary calcification. AXILLA/CHEST WALL: There are surgical clips in the right axilla. There has been bilateral mastectomies. No adenopathy. UPPER ABDOMEN: There are stable small cysts in the liver there is a simple cysts, partially imaged, and the posterior left kidney. There is moderate to heavy calcification of the abdominal aorta. OSSEOUS STRUCTURES: No suspicious lytic or blastic bone lesions. Degenerative changes in the lower thoracic and upper lumbar spine with associated dextroconvex thoracolumbar scoliosis. Severe sclerotic endplate changes are noted at L1-L2. There are degenerative changes in both shoulder joints, greater on the left. Arthritic changes also noted in both sternoclavicular joints right greater than left. CT/CT chest wo IV con IMPRESSION: 1. Previously seen groundglass opacities in both lungs have resolved. There is no active lung disease. 2. Stable small bilateral pulmonary nodules. No new or suspicious nodules. 3. Mild paraseptal and centrilobular emphysema. 4. Stable foci of scarring in the medial right lower lobe and lesser in the left lower lobe. 5. Bilateral mastectomies with surgical clips in the right axilla. 6. Stable small cysts within the liver, and partially imaged cyst in the left kidney. 7. Additional ancillary findings as discussed in the body of the report. Fleischner guidelines were followed.
== END 2024-05-14 12:55 | disposition home or self-care (01) ==
LOC: HO.CT 12:54
PROVIDERS: PCP Internal Medicine; Visit Provider Internal Medicine Pulmonary Disease
DX: R93.89 Abnormal findings on diagnostic imaging of other specified body structures (principal)
CPT/HCPCS: 71250

== ENCOUNTER → 2024-05-14 12:56 | Outpatient (BNV) | payer MEDICARE, SELFPAY | PROVIDERS: PCP Internal Medicine; Visit Provider Radiology Diagnostic Radiology | DX: R93.89 Abnormal findings on diagnostic imaging of other specified body structures (principal) | CPT/HCPCS: 71250 ==

== ENCOUNTER 2024-08-19 10:07 | Outpatient (REF) | payer MEDICARE, SELFPAY ==
[2024-08-19 14:11] LABS: TSH reflex Free T4 0.17 uIU/mL (0.32-4.0)
[2024-08-19 14:55] LABS: Free T4 (Free Thyroxine) 1.15 ng/dL (0.71-1.85)
== END 2024-08-19 10:08 | disposition home or self-care (01) ==
LOC: HO.HMGCLDS 10:07
PROVIDERS: PCP Internal Medicine; Visit Provider Internal Medicine
DX: E03.9 Hypothyroidism, unspecified (principal)
CPT/HCPCS: 36415; 84439; 84443

== ENCOUNTER 2024-08-22 10:49 | Outpatient (AMB) | payer MEDICARE, SELFPAY ==
[2024-08-22 11:14] VITALS: BP 104/68; PULSE 76; O2SAT 97; BMI 22.3
--- NOTE | 2024-08-22 11:14 | MHC.PC.OV ---
Vital Signs 08/22/24 11:14 Height 5 ft 6 in Weight 138 lb BMI 22.3 BP 104/68 Blood Pressure Location Lt brachial Position Sitting Pulse 76 Pulse Source Pulse Oximeter Pulse Oximetry (%) 97 Oxygen Delivery Method Room Air Intake Visit Reasons: thyroid f/u Allergies docetaxel [From TAXOTERE] Allergy (Intermediate, Verified 08/22/24 11:25) TONGUE SWELLING Medication List - Last Reconciled 08/22/24 by Julieth Hendrickson MD albuterol sulfate 90 mcg/actuation (Ventolin HFA) 2 puffs inhalation Q6H PRN budesonide-formoterol 80-4.5 mcg/actuation (Symbicort) 2 puffs PO BID cholecalciferol (vitamin D3) 50 mcg PO DAILY diphenhydramine HCl (Benadryl) 25 mg PO TID PRN fluticasone propionate 50 mcg/actuation 2 sprays intranasal DAILY gabapentin 400 mg PO QID levothyroxine 100 mcg PO DAILY lisinopril 10 mg PO DAILY methocarbamol 750 mg PO Q8H PRN montelukast 10 mg PO BEDTIME omeprazole 20 mg PO DAILY pravastatin 40 mg PO DAILY Tobacco use date assessed: 08/22/24 Fall risk assessment: No Falls in past year Last assessed Fall Risk: 08/22/24 Dental Screening Dental Screen Date: 03/26/24 HPI thyroid f/u HPI Details Patient presents for the follow-up of hypertension hyperlipidemia chronic asthma chronic GERD hypothyroidism. Patient has been using Symbicort only occasionally and reports asthma well controlled on montelukast. COUNTS INCLUDE 234 BEDS AT THE [facility] Medical History Anxiety History of colon polyps Nicotine dependence, cigarettes, uncomplicated Allergies Hepatitis C infection History of breast cancer Spinal stenosis HTN (hypertension) ETOH abuse Osteoarthritis Hypothyroid COPD (chronic obstructive pulmonary disease) Asthma Surgical History History of colonoscopy History of total hysterectomy History of tonsillectomy History of appendectomy History of mastectomy Family History Mother Breast cancer Skin cancer Throat cancer Colon cancer Brother No problems noted. Brother No problems noted. Sister Substance use disorder Maternal Grandfather Colon cancer Maternal Uncle Colon cancer Father Substance use disorder Social History Housing: House Are you a primary property caretaker to a significant other at home: No Do you presently have visiting nurse or other home services: No Patient Tobacco Use Status: Current everyday Tobacco user Tobacco use type: Cigarette Cigarette Packs Per Day: 1 Cigarettes Per Day: 20 Years Smoked: (onset 15yo, 1ppd x 52yrs, 50pyh) e-Cigarette/Vaping Use: Never Used service: No Current occupational status: unemployed Cognitive needs: No Hearing needs: No Vision needs: Yes Questionnaire Thrive Questionnaire Date Thrive assessed: 03/26/24 ZAID-7 AMB Questionnaire ZAID-7 Date ZAID - 7 assessed: 03/26/24 Source: Developed by Drs. Jose Brito, Holley Brewster, Gregorio Landeros and colleagues, with an educational jake from [employer]. Review of Systems Const All systems reviewed & are unremarkable except as noted in HPI and below Card Reports no additional complaints Resp Reports no additional complaints GI Reports no additional complaints Reports no additional complaints Physical exam (Primary Care) Vital Signs: Last Vital Signs Pulse 76 08/22/24 11:14 BP 104/68 08/22/24 11:14 Pulse Ox 97 08/22/24 11:14 Oxygen Delivery Method Room Air 08/22/24 11:14 BMI result Body Mass Index 22.3 Tobacco/Smoking Status: Tobacco use Status Tobacco use date assessed 08/22/24 08/22/24 11:29 Patient Tobacco Use Status Current everyday Tobacco 08/22/24 11:15 Tobacco use type Cigarette 08/22/24 11:15 e-Cigarette/Vaping Use Never Used 08/22/24 11:15 Thrive Assessment: Date of Thrive Assessment Date Thrive assessed 03/26/24 08/22/24 11:15 Const General: no acute distress HENMT Mouth: Normal oral and palatal mucosa present Neck Neck: Yes supple Resp Effort & Inspection: normal respiratory effort Auscultation: clear to auscultation bilaterally Cardio Rhythm: regular rhythm Heart sounds: S1 normal heart sound present and S2 normal heart sound present GI Inspection: Yes normal to inspection Palpation (GI): Soft to palpation Assessment and Plan Assessment & Plan (1) Asthma-COPD overlap syndrome: Code(s): J44.89 - Other specified chronic obstructive pulmonary disease Plan: Patient was advised to use Symbicort regularly and continue montelukast (2) Hypothyroid: Code(s): E03.9 - Hypothyroidism, unspecified Plan: Decrease levothyroxine to 88 mcg and check TSH in 2 months (3) HTN (hypertension): Code(s): I10 - Essential (primary) hypertension Plan: Continue lisinopril (4) Hyperlipidemia: Code(s): E78.5 - Hyperlipidemia, unspecified Plan: Continue pravastatin, follow-up in 6 months with a fasting labs before Orders: Orders TSH reflex Free T4 6 Months E03.9 - Hypothyroidism, unspecified, E78.5 - Hyperlipidemia, unspecified, I10 - Essential (primary) hypertension, J44.89 - Other specified chronic obstructive pulmonary disease Lipid Panel 6 Months E03.9 - Hypothyroidism, unspecified, E78.5 - Hyperlipidemia, unspecified, I10 - Essential (primary) hypertension, J44.89 - Other specified chronic obstructive pulmonary disease Complete Blood Count Auto Diff 6 Months E03.9 - Hypothyroidism, unspecified, E78.5 - Hyperlipidemia, unspecified, I10 - Essential (primary) hypertension, J44.89 - Other specified chronic obstructive pulmonary disease TSH reflex Free T4 2 Months E03.9 - Hypothyroidism, unspecified, E78.5 - Hyperlipidemia, unspecified, I10 - Essential (primary) hypertension, J44.89 - Other specified chronic obstructive pulmonary disease Comprehensive [place]. Panel Fast 6 Months E03.9 - Hypothyroidism, unspecified, E78.5 - Hyperlipidemia, unspecified, I10 - Essential (primary) hypertension, J44.89 - Other specified chronic obstructive pulmonary disease Medications: New levothyroxine 88 mcg PO DAILY 90 tabs 1RF Discontinued levothyroxine Discontinued Reason: Doctor's Order 100 mcg PO DAILY 90 tabs 4RF Coding Level of Care Code Est Pt Level 4 (48156) Diagnoses Asthma-COPD overlap syndrome J44.89 Hypothyroid E03.9 HTN (hypertension) I10 Hyperlipidemia E78.5
== END 2024-08-22 12:44 | disposition home or self-care (01) ==
PROVIDERS: PCP Internal Medicine; Visit Provider Internal Medicine
DX: J44.89 Other specified chronic obstructive pulmonary disease (principal); E03.9 Hypothyroidism, unspecified; I10 Essential (primary) hypertension; E78.5 Hyperlipidemia, unspecified

== ENCOUNTER → 2024-08-22 10:49 | Outpatient (BNVA) | payer MEDICARE, SELFPAY | PROVIDERS: PCP Internal Medicine; Visit Provider Internal Medicine | DX: J44.89 Other specified chronic obstructive pulmonary disease (principal); E03.9 Hypothyroidism, unspecified; I10 Essential (primary) hypertension; E78.5 Hyperlipidemia, unspecified | CPT/HCPCS: 99212 ==

== ENCOUNTER 2024-10-07 10:03 | Outpatient (AMB) | payer MEDICARE, SELFPAY ==
[2024-10-07 10:10] VITALS: BP 108/70; PULSE 84; O2SAT 98; BMI 23.1
--- NOTE | 2024-10-07 10:10 | MHC.OFFVIS ---
Vital Signs 10/07/24 10:10 Height 5 ft 6 in Weight 143 lb BMI 23.1 BP 108/70 Blood Pressure Location Lt brachial Position Sitting Pulse 84 Pulse Source Pulse Oximeter Pulse Oximetry (%) 98 Oxygen Delivery Method Room Air Intake Visit Reasons: OA/CM Intake Note: Patient presents today for follow up on osteoporosis, last seen by Dr. Bae on 08/31/24. Allergies docetaxel [From TAXOTERE] Allergy (Intermediate, Verified 10/07/24 10:13) TONGUE SWELLING Medication List - Last Reconciled 10/07/24 by Fany Pope MD albuterol sulfate 90 mcg/actuation (Ventolin HFA) 2 puffs inhalation Q6H PRN budesonide-formoterol 80-4.5 mcg/actuation (Symbicort) 2 puffs PO BID cholecalciferol (vitamin D3) 50 mcg PO DAILY diphenhydramine HCl (Benadryl) 25 mg PO TID PRN fluticasone propionate 50 mcg/actuation 2 sprays intranasal DAILY gabapentin 400 mg PO QID levothyroxine 88 mcg PO DAILY lisinopril 10 mg PO DAILY methocarbamol 750 mg PO Q8H PRN montelukast 10 mg PO BEDTIME omeprazole 20 mg PO DAILY pravastatin 40 mg PO DAILY HPI Comments Details: Patient is a 59-year-old current everyday smoker with emphysema, hypothyroidism, hypertension and osteoarthritis involving the spine who presents today for follow-up. Interval History: Patient last seen 08/[address] Corby Bae. At that time patient was stable her pain was well controlled on gabapentin and methocarbamol and those were refilled. Today she is here for follow-up. Overall she remained stable. Still having psychosocial stressors including her who is battling lung cancer and dementia. Rheumatologic History: Oa of L-spine Current Rheumatology Medication(s): Gabapentin 400 mg 4 times a day Methocarbamol 750 mg every 8 hours p.r.n. [facility] Medical History (Updated 10/07/24 @ 10:57 by Fany Pope MD) Vitamin D deficiency Anxiety History of colon polyps Nicotine dependence, cigarettes, uncomplicated Allergies Hepatitis C infection History of breast cancer Spinal stenosis HTN (hypertension) ETOH abuse Osteoarthritis Hypothyroid COPD (chronic obstructive pulmonary disease) Asthma Surgical History History of colonoscopy History of total hysterectomy History of tonsillectomy History of appendectomy History of mastectomy Family History Mother Breast cancer Skin cancer Throat cancer Colon cancer Brother No problems noted. Brother No problems noted. Sister Substance use disorder Maternal Grandfather Colon cancer Maternal Uncle Colon cancer Father Substance use disorder Social History Housing: House Are you a primary palliative care nurse practitioner to a significant other at home: No Do you presently have visiting nurse or other home services: No Patient Tobacco Use Status: Current everyday Tobacco user Tobacco use type: Cigarette Cigarette Packs Per Day: 1 Cigarettes Per Day: 20 Years Smoked: (onset 15yo, 1ppd x 52yrs, 50pyh) e-Cigarette/Vaping Use: Never Used service: No Current occupational status: unemployed Cognitive needs: No Hearing needs: No Vision needs: Yes Review of Systems Const Details: Review of Systems Constitutional: Denies fever, chills, weight loss ENT: Denies vision changes, eye pain or eye redness, dental caries, dry mouth GI: Denies nausea, vomiting, diarrhea, abdominal pain, change in BM Pulm: Denies SOB, RUBIO, hemoptysis, wheezing Cards: Denies chest pain, palpitations Skin: Denies Raynaud's, rash, nail changes, photosensitivity, ORAL HYGIENIST: Denies headaches, weakness, paresthesias, recurrent falls MSK: as per HPI All other systems reviewed and are unremarkable except noted above Physical Exam Vital Signs: Last Vital Signs Pulse 84 10/07/24 10:10 BP 108/70 10/07/24 10:10 Pulse Ox 98 10/07/24 10:10 Oxygen Delivery Method Room Air 10/07/24 10:10 BMI result Body Mass Index 23.1 Physical Examination CONSTITUITIONAL Patient alert and cooperative. Well appearing and in no apparent painful distress CHEST/RESPIRATORY SYSTEM Normal respiratory effort and able to speak in complete sentences. ?Clear to auscultation bilaterally. ?No crackles, rales, rhonchi, wheezes heard. CARDIAC SYSTEM Regular rate and rhythm. ?S1 and S2 heard no murmurs. ?Radial pulses intact bilaterally MSK Hands: ?Good lumpia wrapper maker strength bilaterally - 5/5. ?No deformities noted. ?No synovitis noted to the MCPs, PIPs or DIPs. ?No tenderness to palpation of these joints. Wrists: ?Full range of motion at the wrists without pain. ?No tenderness to palpation or synovitis noted to the wrists. Elbows: Full range of motion without pain. No tenderness, weakness, swelling, increased warmth or erythema. Bursa collection noted to the left elbow. Nontender nonerythematous Shoulders: Full range of motion without pain. No tenderness, weakness, swelling, increased warmth or erythema. Knees: ?Full range of motion. ?No tenderness, swelling, increased warmth or erythema.?No effusion or crepitations Ankles: Full range of motion. ?No tenderness, swelling, increased warmth or erythema.? Feet: ?Negative squeeze test. ?No tenderness to palpation or swelling of the MTPs. SKIN Skin intact without rashes. Assessment & Plan Assessment & Plan (1) Osteopenia: Comment: T-scores 07/2023: fem neck -1.3, femur -1.2 LS spine 1.5. Frax 7.7%/1.4% Code(s): M85.80 - Other specified disorders of bone density and structure, unspecified site Category: Medical Qualifiers: Osteopenia location: multiple sites Qualified Code(s): M85.89 - Other specified disorders of bone density and structure, multiple sites Plan: #Osteopenia Continue vitamin-D and calcium supplementation. Given printout on weight-bearing exercises. To have repeat DEXA in 1 year (2) Osteoarthritis: Code(s): M19.90 - Unspecified osteoarthritis, unspecified site Category: Medical Qualifiers: Osteoarthritis location: spine Spinal region: lumbar Spinal osteoarthritis complication: without myelopathy or radiculopathy Qualified Code(s): M47.816 - Spondylosis without myelopathy or radiculopathy, lumbar region Plan: #Spine OA Refer to pain management for spine steroid injections. Refill her gabapentin and methocarbamol Plan I spent 20 minutes reviewing the record and labs, seeing the patient, discussing the treatment plan and documenting in the medical record ? Orders: Orders Vitamin D 25-OH (D2 and D3) 1 Year E55.9 - Vitamin D deficiency, unspecified, M85.89 - Other specified disorders of bone density and structure, multiple sites Comprehensive Met. Panel 1 Year E55.9 - Vitamin D deficiency, unspecified, M85.89 - Other specified disorders of bone density and structure, multiple sites Protein Electrophoresis, Serum 1 Year E55.9 - Vitamin D deficiency, unspecified, M85.89 - Other specified disorders of bone density and structure, multiple sites XR DEXA axial skeleton 1 Year E55.9 - Vitamin D deficiency, unspecified, M85.89 - Other specified disorders of bone density and structure, multiple sites Referrals Pain Management Referral G89.29 - Other chronic pain, M47.816 - Spondylosis without myelopathy or radiculopathy, lumbar region, M54.41 - Lumbago with sciatica, right side Medications: Refilled methocarbamol 750 mg PO Q8H PRN 90 tabs 2RF for muscle pain M47.812 - Spondylosis without myelopathy or radiculopathy, cervical region gabapentin 400 mg PO QID 360 caps 2RF G89.29 - Other chronic pain, M54.41 - Lumbago with sciatica, right side Coding Level of Care Code Est Pt Level 3 (70836) Diagnoses Osteopenia of multiple sites M85.89 Osteopenia location: multiple sites Spondylosis of lumbar region without myelopathy or radiculopathy M47.816 Osteoarthritis location: spine Spinal region: lumbar Spinal osteoarthritis complication: without myelopathy or radiculopathy
== END 2024-10-07 10:35 | disposition home or self-care (01) ==
PROVIDERS: PCP Internal Medicine; Visit Provider Student in an Organized Health Care Education/Training Program
DX: M85.89 Other specified disorders of bone density and structure, multiple sites (principal); M47.816 Spondylosis without myelopathy or radiculopathy, lumbar region
CPT/HCPCS: 99213

== ENCOUNTER → 2024-10-07 10:03 | Outpatient (BNVA) | payer MEDICARE, SELFPAY | PROVIDERS: PCP Internal Medicine; Visit Provider Student in an Organized Health Care Education/Training Program | DX: M85.89 Other specified disorders of bone density and structure, multiple sites (principal); M47.816 Spondylosis without myelopathy or radiculopathy, lumbar region; M47.812 Spondylosis without myelopathy or radiculopathy, cervical region; M54.41 Lumbago with sciatica, right side; E55.9 Vitamin D deficiency, unspecified; G89.29 Other chronic pain | CPT/HCPCS: 99212 ==

== ENCOUNTER 2024-10-22 14:16 | Outpatient (REF) | payer MEDICARE, SELFPAY | END 2024-10-22 14:17 | disposition home or self-care (01) | LOC: HO.HMGCLDS 14:16 | PROVIDERS: PCP Internal Medicine; Visit Provider Internal Medicine | DX: M67.40 Ganglion, unspecified site (principal); E03.9 Hypothyroidism, unspecified; J44.89 Other specified chronic obstructive pulmonary disease; I10 Essential (primary) hypertension; E78.5 Hyperlipidemia, unspecified | CPT/HCPCS: 36415; 84443; 99212 ==

== ENCOUNTER 2024-10-22 14:35 | Outpatient (AMB) | payer MEDICARE, SELFPAY ==
--- NOTE | 2024-10-22 14:46 | MHC.OFFWIV ---
Intake Vital Signs 10/22/24 14:47 Height 5 ft 6 in Weight 142 lb BMI 22.9 BP 120/72 Blood Pressure Location Lt brachial Position Sitting Pulse 93 Pulse Source Pulse Oximeter Pulse Oximetry (%) 97 Oxygen Delivery Method Room Air Intake Visit Reasons: EP-lt elbow swollen Intake Note: Patient here for left elbow pain/swelling that has been present for about 12 weeks. Patient Tobacco Use Status: Current everyday Tobacco user Allergies docetaxel [From TAXOTERE] Allergy (Intermediate, Verified 10/22/24 14:48) TONGUE SWELLING Do you need a note to return to daycare/school/sports/work: No HPI HPI Comments History of Present Illness Details 69 y/o female patient who presents with left elbow mass. She noticed the Mass ~ 1 week ago. Reports some mild tenderness to the Elbow. [facility] Medical History (Updated 10/07/24 @ 10:57 by Fany Pope MD) Vitamin D deficiency Anxiety History of colon polyps Nicotine dependence, cigarettes, uncomplicated Allergies Hepatitis C infection History of breast cancer Spinal stenosis HTN (hypertension) ETOH abuse Osteoarthritis Hypothyroid COPD (chronic obstructive pulmonary disease) Asthma Surgical History History of colonoscopy History of total hysterectomy History of tonsillectomy History of appendectomy History of mastectomy Family History Mother Breast cancer Skin cancer Throat cancer Colon cancer Brother No problems noted. Brother No problems noted. Sister Substance use disorder Maternal Grandfather Colon cancer Maternal Uncle Colon cancer Father Substance use disorder Social History Housing: House Are you a primary plant health care technician to a significant other at home: No Do you presently have visiting nurse or other home services: No Patient Tobacco Use Status: Current everyday Tobacco user Tobacco use type: Cigarette Cigarette Packs Per Day: 1 Cigarettes Per Day: 20 Years Smoked: (onset 15yo, 1ppd x 52yrs, 50pyh) e-Cigarette/Vaping Use: Never Used service: No Current occupational status: unemployed Cognitive needs: No Hearing needs: No Vision needs: Yes Review of Systems Const All systems reviewed & are unremarkable except as noted in HPI and below Physical Exam Vital Signs: Last Vital Signs Pulse 93 10/22/24 14:47 BP 120/72 10/22/24 14:47 Pulse Ox 97 10/22/24 14:47 Oxygen Delivery Method Room Air 10/22/24 14:47 BMI result Body Mass Index 22.9 Const General: cooperative, comfortable and no acute distress Orientation/consciousness: patient oriented x3 Neuro General: patient oriented x3 Extrem Left upper extremity: elbow/forearm (small mass, size of Tennis ball left olecranon joint) Details: normal ROM, warmth and distal pulses intact; no tenderness, no swelling, no abrasions and no lacerations Shoulder/upper arm images: 1. small cyst/mass size of Tennis ball. Non tender, round soft and mobile. Assessment & Plan Assessment & Plan (1) Ganglion cyst: Code(s): M67.40 - Ganglion, unspecified site Plan: Placed referral to Orthopedics Orders: Referrals Orthopedics Referral M67.40 - Ganglion, unspecified site Coding Level of Care Code Est Pt Level 3 (27570) Diagnoses Ganglion cyst M67.40 Time Spent (min) 15
[2024-10-22 14:47] VITALS: BP 120/72; PULSE 93; O2SAT 97; BMI 22.9
== END 2024-10-22 15:31 | disposition home or self-care (01) ==
PROVIDERS: PCP Internal Medicine; Visit Provider Nurse Practitioner Family
DX: M67.40 Ganglion, unspecified site (principal)

== ENCOUNTER 2025-02-18 13:33 | Outpatient (REF) | payer MEDICARE, SELFPAY ==
[2025-02-18 17:06] LABS: Alanine Aminotransferase 12 U/L (0-31); Albumin Level 4.1 g/dL (3.5-5.0); Alkaline Phosphatase 55 U/L (39-117); Anion Gap 11 (12-20); Aspartate Amino Transferase 20 U/L (5-31); Bilirubin Total 0.2 mg/dL (0.0-1.0); Blood Urea Nitrogen 12 mg/dL (9-16); Calcium 9.7 mg/dL (8.4-10.2); Carbon Dioxide 28 mmol/L (22-29); Chloride 106 mmol/L (96-108); Estimated Glomerular Filt Rate > 60; Glucose Random 87 mg/dL (60-115); Sodium 140 mmol/L (135-145); Total Protein 7.2 g/dL (6.5-8.0)
[2025-02-18 17:11] LABS: TSH reflex Free T4 0.82 uIU/mL (0.32-4.0)
== END 2025-02-18 13:34 | disposition home or self-care (01) ==
LOC: HO.HMGCLDS 13:33
PROVIDERS: PCP Internal Medicine; Visit Provider Internal Medicine
DX: Z00.00 Encounter for general adult medical examination without abnormal findings (principal); J44.9 Chronic obstructive pulmonary disease, unspecified; I10 Essential (primary) hypertension; E03.9 Hypothyroidism, unspecified; E78.5 Hyperlipidemia, unspecified; Z79.899 Other long term (current) drug therapy
CPT/HCPCS: 36415; 80053; 84443; 96127; 99397

== ENCOUNTER 2025-02-18 13:33 | Outpatient (AMB) | payer MEDICARE, SELFPAY ==
[2025-02-18 13:38] VITALS: BP 122/74; PULSE 88; RESP 20; TEMP 37; O2SAT 98; BMI 23.4
--- NOTE | 2025-02-18 13:38 | MHC.PC.OV ---
Vital Signs 02/18/25 13:38 Height 5 ft 6 in Weight 145 lb BMI 23.4 BP 122/74 Blood Pressure Location Lt brachial Position Sitting Respiration 20 Pulse 88 Pulse Source Pulse Oximeter Temp 98.6 F Temp Source Oral Pulse Oximetry (%) 98 Oxygen Delivery Method Room Air Intake Visit Reasons: Annual PE Intake Note: Pt is here today for PE. Allergies docetaxel [From TAXOTERE] Allergy (Intermediate, Verified 02/18/25 13:40) TONGUE SWELLING Medication List - Last Reconciled 02/18/25 by Julieth Hendrickson MD albuterol sulfate 90 mcg/actuation (Ventolin HFA) 2 puffs inhalation Q6H PRN budesonide-formoterol 80-4.5 mcg/actuation (Symbicort) 2 puffs PO BID cholecalciferol (vitamin D3) 50 mcg PO DAILY diphenhydramine HCl (Benadryl) 25 mg PO TID PRN fluticasone propionate 50 mcg/actuation 2 sprays intranasal DAILY gabapentin 400 mg PO QID levothyroxine 88 mcg PO DAILY lisinopril 10 mg PO DAILY methocarbamol 750 mg PO Q8H PRN montelukast 10 mg PO BEDTIME omeprazole 20 mg PO DAILY pravastatin 40 mg PO DAILY Tobacco use date assessed: 02/18/25 Fall risk assessment: No Falls in past year Last assessed Fall Risk: 02/18/25 Dental Screening Dental Screen Date: 02/18/25 Did you have a dental visit in the last 12 months?: Yes Did you have a dental problem in the last 6 months where you did not have access to dental care?: No Was dental information given to patient?: Patient has dentist HPI Annual PE HPI Details Patient presents for physical PFSH Medical History Vitamin D deficiency Anxiety History of colon polyps Nicotine dependence, cigarettes, uncomplicated Allergies Hepatitis C infection History of breast cancer Spinal stenosis HTN (hypertension) ETOH abuse Osteoarthritis Hypothyroid COPD (chronic obstructive pulmonary disease) Asthma Surgical History History of colonoscopy History of total hysterectomy History of tonsillectomy History of appendectomy History of mastectomy Family History Mother Breast cancer Skin cancer Throat cancer Colon cancer Brother No problems noted. Brother No problems noted. Sister Substance use disorder Maternal Grandfather Colon cancer Maternal Uncle Colon cancer Father Substance use disorder Social History Housing: House Are you a primary acute care clinical nurse specialist to a significant other at home: No Do you presently have visiting nurse or other home services: No Patient Tobacco Use Status: Current everyday Tobacco user Tobacco use type: Cigarette Cigarette Packs Per Day: 1 Cigarettes Per Day: 20 Years Smoked: (onset 15yo, 1ppd x 52yrs, 50pyh) e-Cigarette/Vaping Use: Never Used service: No Current occupational status: unemployed Cognitive needs: No Hearing needs: No Vision needs: Yes Questionnaire PHQ-9 Over the last 2 weeks, how often have you been bothered by any of the following problems? 1. Little interest or pleasure in doing things: not at all 2. Feeling down, depressed, or hopeless: not at all 3. Trouble falling or staying asleep, or sleeping too much: not at all 4. Feeling tired or having little energy: not at all 5. Poor appetite or overeating: not at all 6. Feeling bad about yourself - or that you are a failure or have let yourself or your family down: not at all 7. Trouble concentrating on things, such as reading the newspaper or watching television: not at all 8. Moving or speaking so slowly that other people could have noticed. Or the opposite - being so fidgety or restless that you have been moving around a lot more than usual: not at all 9. Thoughts that you would be better off or of hurting yourself in some way: not at all Total score: 0 Depression Screening Interpretation: Negative Depression Screening Done: Yes 27760 - PHQ-9 Billing: Yes Source: Developed by Drs. Jose Brito, Holley Brewster, Gregorio Landeros and colleagues, with an educational jake from [employer]. Thrive Questionnaire Date Thrive assessed: 02/18/25 I am a: Parent/Caregiver What is your living situation today?: I have a steady place to live Within the past 12 months, did the food you bought not last and you didn't have the money to get more?: Never true Within the past 12 months, did you worry whether your food would run out before you got money to buy more?: Never true Do you have trouble paying for medicines?: No Do you have trouble getting transportation to medical appointments?: No Do you have trouble paying your heating and electricity bill?: No Do you have trouble taking care of your child, family member or friend?: No Do you have trouble with day-to-day activities such as bathing, preparing meals, shopping, managing finances, etc.?: No Are you currently unemployed and looking for a job?: No Are you interested in more education?: Yes Please select the resources that you would like help with: Food, Utilities and Education Currently or been in a relationship where the following occur: No concerns reported and I choose not to answer THRIVE Score: 0 AUDIT C Alcohol Use Questionnaire (AUDIT-C) 1. How often do you have a drink containing alcohol?: Never 3. How often do you have six or more drinks on one occasion?: Never Total Score: 0 ZAID-7 AMB Questionnaire ZAID-7 Date ZAID - 7 assessed: 02/18/25 Feeling nervous, anxious, or on edge: 0 = Not at all Not being able to stop or control worryin = Not at all Worrying too much about different things: 0 = Not at all Trouble relaxin = Not at all Being so restless that it is hard to sit still: 0 = Not at all Becoming easily annoyed or irritable: 0 = Not at all Feeling afraid as if something awful might happen: 0 = Not at all Total ZAID-7 score (0-4 normal; 5-9 mild; 10-14 moderate; 15-21 severe): 0 Source: Developed by Drs. Jose Brito, Holley Brewster, Gregorio Landeros and colleagues, with an educational jake from [employer]. ZAID-7 Assessment Billing ZAID-7 Assessment Tool: ZAID-7 Assessment 07923 Review of Systems Const All systems reviewed & are unremarkable except as noted in HPI and below Reports no additional complaints Eyes Reports no additional complaints ENT Reports no additional complaints Card Reports no additional complaints Resp Reports no additional complaints GI Reports no additional complaints Reports no additional complaints Physical exam (Primary Care) Vital Signs: Last Vital Signs Temp 98.6 F 02/18/25 13:38 Pulse 88 02/18/25 13:38 Resp 20 02/18/25 13:38 BP 122/74 02/18/25 13:38 Pulse Ox 98 02/18/25 13:38 Oxygen Delivery Method Room Air 02/18/25 13:38 BMI result Body Mass Index 23.4 Tobacco/Smoking Status: Tobacco use Status Tobacco use date assessed 02/18/25 02/18/25 13:45 Patient Tobacco Use Status Current everyday Tobacco 02/18/25 13:45 Tobacco use type Cigarette 02/18/25 13:45 e-Cigarette/Vaping Use Never Used 02/18/25 13:45 PHQ-9: PHQ-9 Score PHQ-9: Total score 0 02/18/25 13:45 Depression Screening Interpretation: Negative Thrive Assessment: Date of Thrive Assessment Date Thrive assessed 02/18/25 02/18/25 13:45 Currently or been in a relationship where the following occur: No concerns reported and I choose not to answer Const General: no acute distress HENMT Head: Yes normal to inspection Ears: hearing grossly normal bilaterally Face and sinus: Yes normal facial exam Eyes General: appearance normal, both eyes and all related structures Neck Neck: Yes no lymphadenopathy and Yes supple Resp Effort & Inspection: normal respiratory effort Auscultation: clear to auscultation bilaterally Cardio Rhythm: regular rhythm Heart sounds: S1 normal heart sound present and S2 normal heart sound present GI Inspection: Yes normal to inspection Palpation (GI): Soft to palpation Percussion: Yes normal to percussion Auscultation: normal bowel sounds Coding Level of Care Code Est Pt Prev Care >65y(79625) Diagnoses COPD (chronic obstructive pulmonary disease) J44.9 HTN (hypertension) I10 Hypothyroid E03.9 Hyperlipidemia E78.5 Annual physical exam Z00.00 Additional Codes ZAID-7 Assessment Billing - ZAID-7 Assessment Tool: ZAID-7 Assessment 01676 ([id number]) PHQ-9 - 58593 - PHQ-9 Billing: Yes ([id number]) Assessment & Plan Assessment & Plan (1) COPD (chronic obstructive pulmonary disease): Comment: Patient cannot tolerate powder inhalers including Advair Spiriva or Trelegy Code(s): J44.9 - Chronic obstructive pulmonary disease, unspecified Category: Medical Plan: Continue Symbicort and tobacco quitting discussed with the patient (2) HTN (hypertension): Code(s): I10 - Essential (primary) hypertension Category: Medical Plan: Continue lisinopril (3) Hypothyroid: Code(s): E03.9 - Hypothyroidism, unspecified Category: Medical Plan: Continue levothyroxine check TSH today (4) Hyperlipidemia: Code(s): E78.5 - Hyperlipidemia, unspecified Category: Medical Plan: Continue statin (5) Annual physical exam: Code(s): Z00.00 - Encounter for general adult medical examination without abnormal findings Category: Medical Plan: Well-balanced diet regular physical activity discussed with the patient she is up-to-date with colonoscopy. Patient had bilateral mastectomy for breast cancer. Return in 6 months Orders: Orders TSH reflex Free T4 Today E03.9 - Hypothyroidism, unspecified, E78.5 - Hyperlipidemia, unspecified, I10 - Essential (primary) hypertension, J44.9 - Chronic obstructive pulmonary disease, unspecified Comprehensive Met. Panel Today E03.9 - Hypothyroidism, unspecified, E78.5 - Hyperlipidemia, unspecified, I10 - Essential (primary) hypertension, J44.9 - Chronic obstructive pulmonary disease, unspecified TSH reflex Free T4 6 Months E03.9 - Hypothyroidism, unspecified, E55.9 - Vitamin D deficiency, unspecified, I10 - Essential (primary) hypertension, Z00.00 - Encounter for general adult medical examination without abnormal findings Comprehensive [place]. Panel Fast 6 Months E03.9 - Hypothyroidism, unspecified, E55.9 - Vitamin D deficiency, unspecified, I10 - Essential (primary) hypertension, Z00.00 - Encounter for general adult medical examination without abnormal findings Lipid Panel 6 Months E03.9 - Hypothyroidism, unspecified, E55.9 - Vitamin D deficiency, unspecified, I10 - Essential (primary) hypertension, Z00.00 - Encounter for general adult medical examination without abnormal findings Complete Blood Count Auto Diff 6 Months E03.9 - Hypothyroidism, unspecified, E55.9 - Vitamin D deficiency, unspecified, I10 - Essential (primary) hypertension, Z00.00 - Encounter for general adult medical examination without abnormal findings Vitamin D 25-OH Total 6 Months E03.9 - Hypothyroidism, unspecified, E55.9 - Vitamin D deficiency, unspecified, I10 - Essential (primary) hypertension, Z00.00 - Encounter for general adult medical examination without abnormal findings
--- OUTSIDE RECORDS SUMMARY | 2025-02-18 16:39 | XMS_ITS | Patient Health Record ---
Author Organization [facility] Address [address] [place] [address] Care Team Providers Care Autocad Detailer Name Role Phone Julieth Hendrickson MD Primary Care Provider Julieta Mcarthur Unavailable [phone] Reason For Referral No Information Plan Of Treatment No Information Insurance Providers Payer Name Payer Address Payer Phone Subscriber Number Group Number Insured Name Patient Relationship to Insured Coverage Start Date Coverage End Date Medicare National [employer] [address] [facility] [address] [id number] Masha Garcia Self - patient is the insured
--- OUTSIDE RECORDS SUMMARY | 2025-02-18 16:39 | XMS_ITS ---
Author Organization [facility] Address [address] [place] [address] Care Team Providers Care Grocery Sacker Name Role Phone Emeka VALENZUELA, Julieth Primary Care Provider Julieta Mcarthur [phone] Encounters Encounter Location Date Provider Diagnosis [address] [address] 09/25/2023 Julieta Quiñonez Plan Of Treatment No Information Progress Notes * Masha GARCIADOB:1955 (69 yo F)Acc No.[id number]:09/25/2023 Progress Notes Patient:?Masha GARCIA Provider:?Julieta Quiñonez DPM :1955???Age:68 Y???Sex:Female D ate:09/25/2023 Address:[address] [place], [place] [id number] Pcp:Julieth Hendrickson MD Subjective: * Chief Complaints: * ??? * Medical History:? Objective: * Vitals:? Assessment: Plan: * Treatment: * Images: * The named appointment provid er may or may not be the originator of this progress note, and it is not deemed complete until electronically signed by the appointment provider. Sign off status: Pending * Provider:?Julieta Quiñonez DPM Date:? Generated for Denise singh/Delroy/eTransmitting on:?02/18/2025 04:39 PM EDT
--- OUTSIDE RECORDS SUMMARY | 2025-02-18 16:39 | XMS_ITS ---
Author Organization [facility] Address [address] [place] [id number] Care Team Providers Care Bowling Ball Engraver Name Role Phone Julieth Hendrickson MD Primary Care Provider Unavaila Julieta Lowe [phone] REASON FOR VISIT cx 09/25 appt Encounters Encounter Location Date Provider Diagnosis [address] [address] 09/11/2023 Julieta Quiñonez Plan Of Treatment No Information Progress Notes * RADHA AugustamichelleDOB:1955 (68 yo F)Acc No.[id number]:09/11/2023 Patient:?Masha Garcia :1955???Age:68 Y???Sex:Female Address:[address] [place] [address], [address] * true * Date:? Generated for Printi samantha/Delroy/eTransmitting on:?02/18/2025 04:39 PM EDT
--- OUTSIDE RECORDS SUMMARY | 2025-02-18 16:39 | XMS_ITS | Clinical Summary ---
Author Organization [employer] Address [address] [place] [address] [address] [place] [address] Care Team Providers Care Hoistman Name Role Phone Unavailable Primary Care Provider Unavailabl e Allergies Active Allergy Reactions Criticality Noted Date Comments Latex 01/02/2024 Medications levothyroxine (Synthroid, Levoxyl) 112 MCG tablet 12/28/2023 Active lisinopril 10 MG tablet Take 10 mg by mouth in the morning. 10/02/2023 Active gabapentin (Neurontin) 400 MG capsule TAKE 1 CAPSULE ORALLY 4 TIMES A DAY 10/22/2023 Active Social History Tobacco Use Types Packs/Day Years Used Date Smoking Tobacco: Every Day Cigarettes 1 40 Tobacco Cessation:Ready to Q uit: Not Asked; Counseling Given: Not Answered Alcohol Use Standard Drinks/Week Comments Defer 0 (1 standard drink = 0.6 oz pur e alcohol) Comments Unknown Sex and Gender Information Value Date Recorded Sex Assigned at Female 01/02/2024 7:58 AM EST Legal Sex Female 7:56 AM EST Gender Identity Female 01/02/2024 7:58 AM EST Sexual Orientation Choose not to disclose 2023 3:10 PM EST Sexual Orientation Straight 01/02/2024 3: 10 PM EST Plan of Treatment Health Maintenance Due Date Last Done Comments CT Colonography 1955 Colonoscopy 1955 Colorectal Cancer Screening 1955 Dental Oral Exam 1957 Dental Prophylaxis 1957 Dental X-Ray: Full Mouth 1957 Depression Screening 1957 FIT DNA/Cologuard 1957 FIT 1957 FOBT 1957 SDOH Screening 1955 Sigmoidoscopy 1957 Alcohol/Substance Use Screening 1969 Tobacco Screening 1969 Hepatitis C Screening 1975 DTaP/Tdap/Td Vaccines (1 - Tdap) 1976 Pneumococcal Vaccine: 50+ Ye ars (1 of 2 - PCV) 1976 Mammogram 1997 Zoster Vaccines (1 of 2) 2007 COVID-19 Vaccine (1 - 2023-2 5 season) 2024 Influenza Vaccine (#1) 2024 Dental X-Ray: Bitewings 01/03/2025 01/02/2024 RSV Patients and Pa tients Aged 60 years or older (1 - 1-dose 75+ series) 2032 HIB Vaccines Aged Out No longer eligi ble based on patient's age to complete this topic HPV Vaccines Aged Out No longer eligi ble based on patient's age to complete this topic Hepatitis A Vaccines Aged Out No long er eligible based on patient's age to complete this topic Hepatitis B Vaccines Aged Out No long er eligible based on patient's age to complete this topic IPV Vaccines Aged Out No longer eligi ble based on patient's age to complete this topic Meningococcal Vaccine Aged Out No manny ashlyn eligible based on patient's age to complete this topic RSV under 20 months Aged Out No longe r eligible based on patient's age to complete this topic Rotavirus Vaccines Aged Out No longer eligible based on patient's age to complete this topic Procedures Procedure Name Priority Date/Time Associated Diagnosis Comments BITEWING - SINGLE RADIOGRAPHIC IMAGE Routine 01/02/2024 12:30 PM EST Dental abscess from Last 3 Months or Most Recently Relevant to Health Maintenance Insurance [facility] MEDICAID STAND ADULT
== END 2025-02-18 14:12 | disposition home or self-care (01) ==
LOC: HO.HMCC 13:34
PROVIDERS: PCP Internal Medicine; Visit Provider Internal Medicine
DX: J44.9 Chronic obstructive pulmonary disease, unspecified (principal); I10 Essential (primary) hypertension; E03.9 Hypothyroidism, unspecified; E78.5 Hyperlipidemia, unspecified; Z00.00 Encounter for general adult medical examination without abnormal findings

== ENCOUNTER 2025-06-26 07:23 | Outpatient (REF) | payer MEDICARE, SELFPAY ==
--- NOTE | ~2025-06-26 | CT_ITS ---
CLINICAL HISTORY: F17.210 - Nicotine dependence, cigarettes, uncomplicated CT lung cancer screening (LDCT) Comparison: CT/TX/SR - CT CHEST WO IV CON - 05/14/24 13:[address]/REG/SR - CT LUNG SCREENING - 02/15/24 14:17 EDT Technique: Axial CT images of the chest using low-dose technique. Referring provider counseled the patient on shared decision-making for LDCT screening. Additional counseling was provided on smoking cessation. Effective radiation dose total: DLP 29.3 mGycm, CTDIvol 0.9 mGy. Findings: Lung: Stable minimal paraseptal emphysema of the upper lobes. Stable mild subpleural interstitial reticulation and ground-glass opacity posterior right lower lobe, probably fibrosis. Left upper lobe stable 4 mm nodule on image 39, micronodule on image 56 slightly improved, perivascular micronodule anteriorly on image 66 stable. Mildly improved several perifissural triangular-shaped nodules/intrapulmonary lymph nodes of the lower lobes. No new pulmonary nodule. Coronary artery calcifications: Stable mild Limited upper abdomen: Stable hypodense hepatic lesions. Other: Degenerative spondylosis of the thoracic spine. Impression: LungRADS 2 - Benign Appearance: Continue annual screening with low dose Chest CT in 12 months. ##L2## Category 1: Normal; continue annual screening Category 2: Benign appearance or behavior, continue annual screening Category 3: Probably benign, [address] recommended Category 4A: Suspicious, [address] recommended; may consider PET/CT Category 4B: Suspicious, Additional diagnostics and/or tissue sampling recommended Category 4X: Suspicious, Additional diagnostics and/or tissue sampling recommended Category 0: Recalls (incomplete screen due to Incomplete coverage, Noise, Respiratory motion, Expiration, Obscured by acute abnormality) This document has been electronically signed by: Josie Hampton MD on 06/26/2025 15:25:10
== END 2025-06-26 07:24 | disposition home or self-care (01) ==
LOC: HO.CT 07:23
PROVIDERS: PCP Internal Medicine; Visit Provider Physician Assistant Medical
DX: Z12.2 Encounter for screening for malignant neoplasm of respiratory organs (principal); F17.210 Nicotine dependence, cigarettes, uncomplicated
CPT/HCPCS: 71271

== ENCOUNTER → 2025-06-26 07:25 | Outpatient (BNV) | payer MEDICARE, SELFPAY | PROVIDERS: PCP Internal Medicine; Visit Provider Radiology Diagnostic Radiology | DX: Z12.2 Encounter for screening for malignant neoplasm of respiratory organs (principal); F17.210 Nicotine dependence, cigarettes, uncomplicated | CPT/HCPCS: 71271 ==

== ENCOUNTER 2025-08-14 08:05 | Outpatient (REF) | payer MEDICARE, SELFPAY ==
[2025-08-14 10:14] LABS: MANUAL DIFF FLAG NO
[2025-08-14 10:25] LABS: Hematocrit 39.1 % (37.0-47.0); Hemoglobin 12.9 g/dl (12.0-16.0); Imm Gran Abs Auto 0.02 X10*3/uL (0.00-0.03); Imm Gran Pct Auto 0.3 % (0.0-0.4); Lymphocytes Absolute Auto 2.3 X10*3/uL (1.2-4.9); Mean Corpuscular HGB Conc 33.0 g/dl (31.0-35.0); Mean Corpuscular Hemoglobin 31.5 pg (27.0-33.0); Mean Corpuscular Volume 95.4 fL (80.0-98.0); NRBC Abs Auto 0.000 X10*3/uL (0.0-0.012); NRBC Pct Auto 0.0 /100WBC (0.0-0.2); Platelet Count 350 X10*3/uL (160-400); Red Blood Count 4.10 X10*6/uL (4.20-5.50); White Blood Count 6.5 X10*3/uL (4.8-10.8)
[2025-08-14 11:00] LABS: Alanine Aminotransferase 14 U/L (0-31); Albumin Level 4.5 g/dL (3.5-5.0); Alkaline Phosphatase 54 U/L (39-117); Anion Gap 9 (12-20); Aspartate Amino Transferase 28 U/L (5-31); Blood Urea Nitrogen 17 mg/dL (9-16); Calcium 9.8 mg/dL (8.4-10.2); Carbon Dioxide 30 mmol/L (22-29); Chloride 106 mmol/L (96-108); Cholesterol 165 mg/dL (<200); Estimated Glomerular Filt Rate > 60; HDL Cholesterol 64 mg/dL (>40); Potassium 4.4 mmol/L (3.3-5.1); Sodium 141 mmol/L (135-145); Total Protein 7.5 g/dL (6.5-8.0); Triglycerides 73 mg/dL (<150)
== END 2025-08-14 08:06 | disposition home or self-care (01) ==
LOC: HO.HMGCLDS 08:05
PROVIDERS: PCP Internal Medicine; Visit Provider Internal Medicine
DX: Z00.00 Encounter for general adult medical examination without abnormal findings (principal); I10 Essential (primary) hypertension; E55.9 Vitamin D deficiency, unspecified; E03.9 Hypothyroidism, unspecified
CPT/HCPCS: 36415; 80053; 80061; 82306; 84443; 85025

== ENCOUNTER 2025-08-19 11:11 | Outpatient (AMB) | payer MEDICARE, SELFPAY ==
[2025-08-19 11:18] VITALS: BP 128/80; PULSE 95; RESP 19; TEMP 36.8; O2SAT 98; BMI 22.6
--- NOTE | 2025-08-19 11:18 | A.OFFPC_ITS ---
Vital Signs 08/19/25 11:18 Height 5 ft 6 in Weight 140 lb BMI 22.6 BP 128/80 Blood Pressure Location Lt brachial Position Sitting Respiration 19 Pulse 95 Pulse Source Pulse Oximeter Temp 98.3 F Temp Source Oral Pulse Oximetry (%) 98 Oxygen Delivery Method Room Air Intake Visit Reasons: 6 months f/up Intake Note: Pt is here today for 6 months follow up visit. Allergies docetaxel (From TAXOTERE) Allergy (Intermediate, Verified 08/19/25 11:18) TONGUE SWELLING Medication List - Last Reconciled 08/19/25 by Julieth Hendrickson MD albuterol sulfate 90 mcg/actuation (Ventolin HFA) 2 puffs inhalation Q6H PRN budesonide-formoterol 80-4.5 mcg/actuation (Symbicort) 2 puffs PO BID cholecalciferol (vitamin D3) 50 mcg PO DAILY diphenhydramine HCl (Benadryl) 25 mg PO TID PRN fluticasone propionate 50 mcg/actuation 2 sprays intranasal DAILY gabapentin 400 mg PO QID levothyroxine 88 mcg PO DAILY lisinopril 10 mg PO DAILY methocarbamol 750 mg PO Q8H PRN montelukast 10 mg PO BEDTIME omeprazole 20 mg PO DAILY pravastatin 40 mg PO DAILY Tobacco use date assessed: 08/19/25 Fall risk assessment: No Falls in past year Last assessed Fall Risk: 08/19/25 Dental Screening Dental Screen Date: 02/18/25 HPI 6 months f/up HPI Details Pt presents for the follow-up of hypertension hyperlipidemia hypothyroidism chronic asthma stable on current medications. She reports increasing stress and anxiety for the last few months, having difficulty with her partner and worry about politics. Patient used to see a counselor who left the practice a few months ago. She denies suicide ideation [facility] Medical History Vitamin D deficiency Anxiety History of colon polyps Nicotine dependence, cigarettes, uncomplicated Allergies Hepatitis C infection History of breast cancer Spinal stenosis HTN (hypertension) ETOH abuse Osteoarthritis Hypothyroid COPD (chronic obstructive pulmonary disease) Asthma Surgical History History of colonoscopy History of total hysterectomy History of tonsillectomy History of appendectomy History of mastectomy Family History Mother Breast cancer Skin cancer Throat cancer Colon cancer Brother No problems noted. Brother No problems noted. Sister Substance use disorder Maternal Grandfather Colon cancer Maternal Uncle Colon cancer Father Substance use disorder Social History Housing: House Are you a primary home health care provider to a significant other at home: No Do you presently have visiting nurse or other home services: No Patient Tobacco Use Status: Current everyday Tobacco user Tobacco use type: Cigarette Cigarette Packs Per Day: 1 Cigarettes Per Day: 20 Years Smoked: (onset 15yo, 1ppd x 52yrs, 50pyh) e-Cigarette/Vaping Use: Never Used service: No Current occupational status: unemployed Cognitive needs: No Hearing needs: No Vision needs: Yes Questionnaire PHQ-9 Over the last 2 weeks, how often have you been bothered by any of the following problems? 1. Little interest or pleasure in doing things: not at all 2. Feeling down, depressed, or hopeless: not at all 3. Trouble falling or staying asleep, or sleeping too much: not at all 4. Feeling tired or having little energy: not at all 5. Poor appetite or overeating: not at all 6. Feeling bad about yourself - or that you are a failure or have let yourself or your family down: not at all 7. Trouble concentrating on things, such as reading the newspaper or watching television: not at all 8. Moving or speaking so slowly that other people could have noticed. Or the opposite - being so fidgety or restless that you have been moving around a lot more than usual: not at all 9. Thoughts that you would be better off or of hurting yourself in some way: not at all Total score: 0 Depression Screening Interpretation: Negative Depression Screening Done: Yes Source: Developed by Drs. Jose Brito, Holley Brewster, Gregorio Landeros and colleagues, with an educational jake from [employer]. Thrive Questionnaire Date Thrive assessed: 02/18/25 I am a: Parent/Caregiver What is your living situation today?: I have a steady place to live Within the past 12 months, did the food you bought not last and you didn't have the money to get more?: Never true Within the past 12 months, did you worry whether your food would run out before you got money to buy more?: Never true Do you have trouble paying for medicines?: No Do you have trouble getting transportation to medical appointments?: No Do you have trouble paying your heating and electricity bill?: No Do you have trouble taking care of your child, family member or friend?: No Do you have trouble with day-to-day activities such as bathing, preparing meals, shopping, managing finances, etc.?: No Are you currently unemployed and looking for a job?: No Are you interested in more education?: Yes THRIVE Score: 0 ZAID-7 AMB Questionnaire ZAID-7 Date ZAID - 7 assessed: 02/18/25 Feeling nervous, anxious, or on edge: 0 = Not at all Not being able to stop or control worryin = Not at all Worrying too much about different things: 0 = Not at all Trouble relaxin = Not at all Being so restless that it is hard to sit still: 0 = Not at all Becoming easily annoyed or irritable: 0 = Not at all Feeling afraid as if something awful might happen: 0 = Not at all Total ZAID-7 score (0-4 normal; 5-9 mild; 10-14 moderate; 15-21 severe): 0 Source: Developed by Drs. Jose Brito, Holley Brewster, Gregorio Landeros and colleagues, with an educational jake from [employer]. Review of Systems Const All systems reviewed & are unremarkable except as noted in HPI and below Eyes Reports no additional complaints ENT Reports no additional complaints Card Reports no additional complaints Resp Reports no additional complaints GI Reports no additional complaints Reports no additional complaints Physical exam (Primary Care) Vital Signs: Last Vital Signs Temp 98.3 F 08/19/25 11:18 Pulse 95 08/19/25 11:18 Resp 19 08/19/25 11:18 BP 128/80 08/19/25 11:18 Pulse Ox 98 08/19/25 11:18 Oxygen Delivery Method Room Air 08/19/25 11:18 BMI result Body Mass Index 22.6 Tobacco/Smoking Status: Tobacco use Status Tobacco use date assessed 08/19/25 08/19/25 11:22 Patient Tobacco Use Status Current everyday Tobacco 08/19/25 11:21 Tobacco use type Cigarette 08/19/25 11:21 e-Cigarette/Vaping Use Never Used 08/19/25 11:21 PHQ-9: PHQ-9 Score PHQ-9: Total score 0 08/19/25 11:53 Depression Screening Interpretation: Negative Thrive Assessment: Date of Thrive Assessment Date Thrive assessed 02/18/25 08/19/25 11:21 Const General: no acute distress HENMT Head: Yes normal to inspection Face and sinus: Yes normal facial exam Eyes General: appearance normal, both eyes and all related structures Neck Neck: Yes supple Resp Effort & Inspection: normal respiratory effort Auscultation: clear to auscultation bilaterally Cardio Rhythm: regular rhythm Heart sounds: S1 normal heart sound present and S2 normal heart sound present GI Inspection: Yes normal to inspection Palpation (GI): Soft to palpation Percussion: Yes normal to percussion Auscultation: normal bowel sounds Coding Level of Care Code Est Pt Level 4 (51878) Diagnoses Anxiety F41.9 HTN (hypertension) I10 Hyperlipidemia E78.5 Asthma-COPD overlap syndrome J44.89 Assessment & Plan Assessment & Plan (1) Anxiety: Code(s): F41.9 - Anxiety disorder, unspecified Category: Medical Plan: Stress management discussed with the patient. she will be referred to the counseling. Hydroxyzine 10 mg q.h.s. will be started for insomnia and sertraline 50 mg daily for anxiety. Patient will follow-up in 1 month (2) HTN (hypertension): Code(s): I10 - Essential (primary) hypertension Category: Medical Plan: Continue current medications (3) Hyperlipidemia: Code(s): E78.5 - Hyperlipidemia, unspecified Category: Medical Plan: Continue statin (4) Asthma-COPD overlap syndrome: Code(s): J44.89 - Other specified chronic obstructive pulmonary disease Category: Medical Plan: Continue Symbicort and albuterol as needed Medications: New hydroxyzine HCl 10 mg PO BEDTIME 60 tabs 0RF sertraline 50 mg PO DAILY 30 tabs 1RF
--- OUTSIDE RECORDS SUMMARY | 2025-08-19 14:02 | XMS_ITS | Clinical Summary ---
Author Organization [employer] Address [address] [place] [address] [address] [place] [address] Care Team Providers Care Chief Cruiser Name Role Phone Unavailable Primary Care Provider [...] 1997 Zoster Vaccines (1 of 2) 2007 Dental X-Ray: Bitewings 01/03/2025 01/02/2024 COVID-19 Vaccine (1 - 2023-2 5 season) 2025 Influenza Vaccine (#1) 2025 RSV Patients and Pa tients Aged 60 [...] patient's age to complete this topic Meningococcal B Vaccine Aged Out No l onger eligible based on patient's age to complete [...] Most Recently Relevant to Health Maintenance Insurance [facility] MEDICAID STAND ADULT
== END 2025-08-19 12:20 | disposition home or self-care (01) ==
LOC: HO.HMCC 11:12
PROVIDERS: PCP Internal Medicine; Visit Provider Internal Medicine
DX: F41.9 Anxiety disorder, unspecified (principal); I10 Essential (primary) hypertension; E78.5 Hyperlipidemia, unspecified; J44.89 Other specified chronic obstructive pulmonary disease

== ENCOUNTER → 2025-08-19 11:11 | Outpatient (BNVA) | payer MEDICARE, SELFPAY | PROVIDERS: PCP Internal Medicine; Visit Provider Internal Medicine | DX: I10 Essential (primary) hypertension (principal); E78.5 Hyperlipidemia, unspecified; E03.9 Hypothyroidism, unspecified; D64.9 Anemia, unspecified; F41.9 Anxiety disorder, unspecified; J44.89 Other specified chronic obstructive pulmonary disease; Z79.899 Other long term (current) drug therapy | CPT/HCPCS: 96127; 99212 ==

== ENCOUNTER 2025-09-18 12:55 | Outpatient (REF) | payer MEDICARE, SELFPAY ==
[2025-09-18 18:15] LABS: Resp Syncy Virus RNA Qual PCR NEGATIVE (Negative); SARS COV2 PCR INHOUSE NEGATIVE (Negative)
== END 2025-09-18 12:56 | disposition home or self-care (01) ==
LOC: HO.LAB 12:55
PROVIDERS: PCP Internal Medicine; Visit Provider Internal Medicine
DX: J39.9 Disease of upper respiratory tract, unspecified (principal); J45.909 Unspecified asthma, uncomplicated; I10 Essential (primary) hypertension; E78.5 Hyperlipidemia, unspecified; Z79.890 Hormone replacement therapy; Z79.899 Other long term (current) drug therapy
CPT/HCPCS: 87637; 99212

== ENCOUNTER 2025-09-18 12:55 | Outpatient (AMB) | payer MEDICARE, SELFPAY ==
--- NOTE | 2025-09-18 12:57 | A.OFFPC_ITS ---
Vital Signs 09/18/25 12:58 Height 5 ft 6 in Weight 139 lb BMI 22.4 BP 134/78 Blood Pressure Location Lt brachial Position Sitting Respiration 18 Pulse 94 Pulse Source Pulse Oximeter Temp 98.3 F Temp Source Oral Pulse Oximetry (%) 97 Oxygen Delivery Method Room Air Intake Visit Reasons: 1m follow up Intake Note: Pt is here today for 1 month follow up visit. Allergies docetaxel (From TAXOTERE) Allergy (Intermediate, Verified 09/18/25 13:00) TONGUE SWELLING sertraline Adverse Reaction (Intermediate, Verified 09/18/25 13:14) dry [facility] Medication List - Last Reconciled 09/18/25 by Julieth Hendrickson MD albuterol sulfate 90 mcg/actuation (Ventolin HFA) 2 puffs inhalation Q6H PRN budesonide-formoterol 80-4.5 mcg/actuation (Symbicort) 2 puffs PO BID cholecalciferol (vitamin D3) 50 mcg PO DAILY diphenhydramine HCl (Benadryl) 25 mg PO TID PRN fluticasone propionate 50 mcg/actuation 2 sprays intranasal DAILY gabapentin 400 mg PO QID hydroxyzine HCl 10 mg PO BEDTIME levothyroxine 88 mcg PO DAILY lisinopril 10 mg PO DAILY methocarbamol 750 mg PO Q8H PRN montelukast 10 mg PO BEDTIME omeprazole 20 mg PO DAILY pravastatin 40 mg PO DAILY sertraline 50 mg PO DAILY Tobacco use date assessed: 08/19/25 Dental Screening Dental Screen Date: 02/18/25 HPI 1m follow up HPI Details Pt c/o dry cough, nasal and sinus congestion and body aches for 2 days. she denies fever chills pleurisy shortness or breath or wheezing. patient has not been taking sertraline for anxiety and depression because developed dry mouth. she is planning to schedule an appointment with a counselor. Patient declined taking medications for the depression or anxiety. hypertension and hyperlipidemia are controlled on current medications. [facility] Medical History Vitamin D deficiency Anxiety History of colon polyps Nicotine dependence, cigarettes, uncomplicated Allergies Hepatitis C infection History of breast cancer Spinal stenosis HTN (hypertension) ETOH abuse Osteoarthritis Hypothyroid COPD (chronic obstructive pulmonary disease) Asthma Surgical History History of colonoscopy History of total hysterectomy History of tonsillectomy History of appendectomy History of mastectomy Family History Mother Breast cancer Skin cancer Throat cancer Colon cancer Brother No problems noted. Brother No problems noted. Sister Substance use disorder Maternal Grandfather Colon cancer Maternal Uncle Colon cancer Father Substance use disorder Social History Housing: House Are you a primary tree care foreman to a significant other at home: No Do you presently have visiting nurse or other home services: No Patient Tobacco Use Status: Current everyday Tobacco user Tobacco use type: Cigarette Cigarette Packs Per Day: 1 Cigarettes Per Day: 20 Years Smoked: (onset 15yo, 1ppd x 52yrs, 50pyh) e-Cigarette/Vaping Use: Never Used service: No Current occupational status: unemployed Cognitive needs: No Hearing needs: No Vision needs: Yes Questionnaire Thrive Questionnaire Date Thrive assessed: 02/18/25 I am a: Parent/Caregiver What is your living situation today?: I have a steady place to live Within the past 12 months, did the food you bought not last and you didn't have the money to get more?: Never true Within the past 12 months, did you worry whether your food would run out before you got money to buy more?: Never true Do you have trouble paying for medicines?: No Do you have trouble getting transportation to medical appointments?: No Do you have trouble paying your heating and electricity bill?: No Do you have trouble taking care of your child, family member or friend?: No Do you have trouble with day-to-day activities such as bathing, preparing meals, shopping, managing finances, etc.?: No Are you currently unemployed and looking for a job?: No Are you interested in more education?: Yes THRIVE Score: 0 ZAID-7 AMB Questionnaire ZAID-7 Date ZAID - 7 assessed: 02/18/25 Source: Developed by Drs. Jose Brito, Holley Brewster, Gregorio Landeros and colleagues, with an educational jake from [employer]. Review of Systems Const All systems reviewed & are unremarkable except as noted in HPI and below Eyes Reports no additional complaints ENT Reports no additional complaints Card Reports no additional complaints Resp Reports no additional complaints GI Reports no additional complaints Reports no additional complaints Physical exam (Primary Care) Vital Signs: Last Vital Signs Temp 98.3 F 09/18/25 12:58 Pulse 94 09/18/25 12:58 Resp 18 09/18/25 12:58 BP 134/78 09/18/25 12:58 Pulse Ox 97 09/18/25 12:58 Oxygen Delivery Method Room Air 09/18/25 12:58 BMI result Body Mass Index 22.4 Tobacco/Smoking Status: Tobacco use Status Tobacco use date assessed 08/19/25 09/18/25 12:58 Patient Tobacco Use Status Current everyday Tobacco 09/18/25 12:58 Tobacco use type Cigarette 09/18/25 12:58 e-Cigarette/Vaping Use Never Used 09/18/25 12:58 Thrive Assessment: Date of Thrive Assessment Date Thrive assessed 02/18/25 09/18/25 12:58 Const General: no acute distress HENMT Ears: TM's normal bilaterally Face and sinus: Yes normal facial exam and No sinus tenderness Throat: Yes posterior oropharynx normal and Yes postnasal drainage Eyes General: appearance normal, both eyes and all related structures Neck Neck: Yes no lymphadenopathy and Yes supple Resp Effort & Inspection: normal respiratory effort Auscultation: clear to auscultation bilaterally Cardio Rhythm: regular rhythm Heart sounds: S1 normal heart sound present and S2 normal heart sound present Coding Level of Care Code Est Pt Level 4 (07796) Diagnoses URI (upper respiratory infection) J06.9 Asthma J45.909 HTN (hypertension) I10 Hyperlipidemia E78.5 Assessment & Plan Assessment & Plan (1) URI (upper respiratory infection): Code(s): J06.9 - Acute upper respiratory infection, unspecified Category: Medical Plan: Check respiratory panel, supportive care discussed with the patient. Ameya Albert prescribed (2) Asthma: Comment: Controlled on montelukast and Symbicort 80 mcg Code(s): J45.909 - Unspecified asthma, uncomplicated Category: Medical Plan: Continue Symbicort and albuterol as needed (3) HTN (hypertension): Code(s): I10 - Essential (primary) hypertension Category: Medical Plan: Continue lisinopril (4) Hyperlipidemia: Code(s): E78.5 - Hyperlipidemia, unspecified Category: Medical Plan: Continue statin Orders: Orders SARS-CoV2/FLU/RSV Today J39.9 - Disease of upper respiratory tract, unspecified Comprehensive [place]. Panel Fast 5 Months E03.9 - Hypothyroidism, unspecified, E55.9 - Vitamin D deficiency, unspecified, E78.5 - Hyperlipidemia, unspecified, I10 - Essential (primary) hypertension Complete Blood Count Auto Diff 5 Months E03.9 - Hypothyroidism, unspecified, E55.9 - Vitamin D deficiency, unspecified, E78.5 - Hyperlipidemia, unspecified, I10 - Essential (primary) hypertension Lipid Panel 5 Months E03.9 - Hypothyroidism, unspecified, E55.9 - Vitamin D deficiency, unspecified, E78.5 - Hyperlipidemia, unspecified, I10 - Essential (primary) hypertension TSH reflex Free T4 5 Months E03.9 - Hypothyroidism, unspecified, E55.9 - Vitamin D deficiency, unspecified, E78.5 - Hyperlipidemia, unspecified, I10 - Essential (primary) hypertension Vitamin D 25-OH Total 5 Months E03.9 - Hypothyroidism, unspecified, E55.9 - Vitamin D deficiency, unspecified, E78.5 - Hyperlipidemia, unspecified, I10 - Essential (primary) hypertension UA w Microscopic 5 Months E03.9 - Hypothyroidism, unspecified, E55.9 - Vitamin D deficiency, unspecified, E78.5 - Hyperlipidemia, unspecified, I10 - Essential (primary) hypertension Medications: New benzonatate 100 mg PO BID-TID PRN 30 caps 0RF cough Refilled budesonide-formoterol 80-4.5 mcg/actuation (Symbicort) 2 puffs PO BID 30.6 ea 2RF albuterol sulfate 90 mcg/actuation (Ventolin HFA) 2 puffs inhalation Q6H PRN 8.5 grams 5RF shortness of breath or wheezing pravastatin 40 mg PO DAILY 90 tabs 3RF Discontinued sertraline Discontinued Reason: Doctor's Order 50 mg PO DAILY 30 tabs 1RF
[2025-09-18 12:58] VITALS: BP 134/78; PULSE 94; RESP 18; TEMP 36.8; O2SAT 97; BMI 22.4
--- OUTSIDE RECORDS SUMMARY | 2025-09-18 16:07 | XMS_ITS | Clinical Summary ---
Author Organization [employer] Address [address] [place] [address] [address] [place] [address] Care Team Providers Care Freight Team Associate Name Role Phone Unavailable Primary Care Provider [...] Most Recently Relevant to Health Maintenance Insurance [facility] MEDICAID STAND ADULT
== END 2025-09-18 13:26 | disposition home or self-care (01) ==
LOC: HO.HMCC 12:56
PROVIDERS: PCP Internal Medicine; Visit Provider Internal Medicine
DX: J06.9 Acute upper respiratory infection, unspecified (principal); J45.909 Unspecified asthma, uncomplicated; I10 Essential (primary) hypertension; E78.5 Hyperlipidemia, unspecified

== ENCOUNTER 2025-10-07 11:03 | Outpatient (AMB) | payer MEDICARE, SELFPAY ==
--- NOTE | 2025-10-07 11:06 | A.OFFVIS_ITS ---
Vital Signs 10/07/25 11:13 Height 5 ft 6 in Weight 141 lb 8.588 oz BMI 22.8 BP 115/70 Blood Pressure Location Lt brachial Position Sitting Pulse 95 Pulse Source Pulse Oximeter Pulse Oximetry (%) 96 Oxygen Delivery Method Room Air Intake Visit Reasons: follow up Intake Note: Patient presents for Osteopenia/Osteoarthritis follow up. Allergies docetaxel (From TAXOTERE) Allergy (Intermediate, Verified 10/07/25 11:11) TONGUE SWELLING sertraline Adverse Reaction (Intermediate, Verified 10/07/25 11:11) dry [facility] Medication List - Last Reconciled 10/07/25 by Fany Pope MD albuterol sulfate 90 mcg/actuation (Ventolin HFA) 2 puffs inhalation Q6H PRN benzonatate 100 mg PO BID-TID PRN cholecalciferol (vitamin D3) 50 mcg PO DAILY diphenhydramine HCl (Benadryl) 25 mg PO TID PRN fluticasone propionate 50 mcg/actuation 2 sprays intranasal DAILY fluticasone propionate 110 mcg/actuation 2 puffs inhalation BID gabapentin 400 mg PO QID hydroxyzine HCl 10 mg PO BEDTIME levothyroxine 88 mcg PO DAILY lisinopril 10 mg PO DAILY methocarbamol 750 mg PO Q8H PRN montelukast 10 mg PO BEDTIME omeprazole 20 mg PO DAILY pravastatin 40 mg PO DAILY HPI Comments Details: Patient is a 70-year-old current everyday smoker with emphysema, hypothyroidism, hypertension and osteoarthritis involving the spine who presents today for follow-up. Interval History: Patient last seen 10/07/24 with ut - On gabapentin 400mg qid and methocarbamol 750mg q8hr - Overall she remained stable. - Still having psychosocial stressors including her who is battling lung cancer and dementia. - Recommended pain management eval Today - On gabapentin 400mg qid and methocarbamol 750mg q8hr - Complaining of right TMJ pain, known hx of teeth grinding - Did not get DEXA scan done, has appointment 10/2025 - Did not go to pain management, rather do exercises - still going through cancer, they found a new lesion Rheumatologic History: OA of L-spine Current Rheumatology Medication(s): Gabapentin 400 mg 4 times a day Methocarbamol 750 mg every 8 hours p.r.n. [facility] Medical History Vitamin D deficiency Anxiety History of colon polyps Nicotine dependence, cigarettes, uncomplicated Allergies Hepatitis C infection History of breast cancer Spinal stenosis HTN (hypertension) ETOH abuse Osteoarthritis Hypothyroid COPD (chronic obstructive pulmonary disease) Asthma Surgical History History of colonoscopy History of total hysterectomy History of tonsillectomy History of appendectomy History of mastectomy Family History Mother Breast cancer Skin cancer Throat cancer Colon cancer Brother No problems noted. Brother No problems noted. Sister Substance use disorder Maternal Grandfather Colon cancer Maternal Uncle Colon cancer Father Substance use disorder Social History Housing: House Are you a primary rn urgent care to a significant other at home: No Do you presently have visiting nurse or other home services: No Patient Tobacco Use Status: Current everyday Tobacco user Tobacco use type: Cigarette Cigarette Packs Per Day: 1 Cigarettes Per Day: 20 Years Smoked: (onset 15yo, 1ppd x 52yrs, 50pyh) e-Cigarette/Vaping Use: Never Used service: No Current occupational status: unemployed Cognitive needs: No Hearing needs: No Vision needs: Yes Review of Systems Narrative Review of Systems Constitutional: Denies fever, chills, weight loss ENT: Denies vision changes, eye pain or eye redness, dental caries, dry mouth GI: Denies nausea, vomiting, diarrhea, abdominal pain, change in BM Pulm: Denies SOB, RUBIO, hemoptysis, wheezing Cards: Denies chest pain, palpitations Skin: Denies Raynaud's, rash, nail changes, photosensitivity, 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 Well appearing and in no apparent painful distress MSK Hands * Right Hand: Able to make a fist. No swelling or tenderness to palpation of the MCPs, PIPs or DIPs. * Left Hand: Able to make a fist. No swelling or tenderness to palpation of the MCPs, PIPs or DIPs. * Herbedens nodes noted bilaterally Wrists * Right Wrist: Full ROM to flexion and extension. No swelling or TTP * Left Wrist: Full ROM to flexion and extension. No swelling or TTP Elbows * Right Elbow: Full ROM. No swelling or TTP. No TTP of the medial epicondyle. No TTP of the lateral epicondyle * Left Elbow: Full ROM. No swelling or TTP. No TTP of the medial epicondyle. No TTP of the lateral epicondyle Shoulders * Right shoulder: Full ROM. No swelling noted. No TTP of the AC joint. No TTP of the subacromial bursa. No TTP of the posterior shoulder * Left shoulder: Full ROM. No swelling noted. No TTP of the AC joint. No TTP of the subacromial bursa. No TTP of the posterior shoulder Knees * Right knee: Full ROM. No swelling noted. No TTP of the knee joint line. No TTP of pes anserine bursa * Left knee: Full ROM. No swelling noted. No TTP of the knee joint line. No TTP of pes anserine bursa. * Crepitations felt bilaterally Ankles * Right ankle: Good ankle dorsiflexion and plantar flexion. No swelling. No TTP of the ankle joint * Left ankle: Good ankle dorsiflexion and plantar flexion. No swelling. No TTP of the ankle joint Feet * Right foot: Negative squeeze test * Left foot: Negative squeeze test Tender points? * No tenderness to palpation of the bilateral trapezius, supraspinatus, anterior costochondral junctions, bilateral suboccipital muscle insertions SKIN Splitting in skin of the fingers consistent with contact dermatitis Vital Signs: Last Vital Signs Pulse 95 10/07/25 11:13 BP 115/70 10/07/25 11:13 Pulse Ox 96 10/07/25 11:13 Oxygen Delivery Method Room Air 10/07/25 11:13 BMI result Body Mass Index 22.8 Results Reviewed Results Reviewed: Laboratory Tests 08/14/25 08:26 WBC 6.5 RBC 4.10 L Hgb 12.9 Hct 39.1 Plt Count 350 Sodium 141 Potassium 4.4 Chloride 106 Carbon Dioxide 30 H BUN 17 H Creatinine 0.86 AST 28 ALT 14 25-OH Vitamin D Total 68.5 DEXA 07/2023 FINDINGS: LEFT FEMUR, NECK: BMD 0.852 g/cm2, Z-score 0.3, T-score -1.3, osteopenia. LEFT FEMUR, TOTAL: BMD 0.857 g/cm2, Z-score 0.2, T-score -1.2, osteopenia. AP SPINE L1-L4: BMD 1.363 g/cm2, Z-score 3.4, T-score 1.5, normal. FRAX 7.7/1.4 Assessment & Plan Assessment & Plan (1) Osteopenia: Comment: T-scores 07/2023: fem neck -1.3, femur -1.2 LS spine 1.5. Frax 7.7%/1.4% Code(s): M85.80 - Other specified disorders of bone density and structure, unspecified site Category: Medical Qualifiers: Osteopenia location: multiple sites Qualified Code(s): M85.89 - Other specified disorders of bone density and structure, multiple sites Plan: #Osteopenia Patient is a 70 year old female with osteopenia and low FRAX here today for follow up No indication for treatment at this time Needs DEXA updated Plan - DEXA Scan, has appt 10/2025 - Continue vit D supplementation - RTC 1 year or sooner (2) Osteoarthritis: Code(s): M19.90 - Unspecified osteoarthritis, unspecified site Category: Medical Qualifiers: Osteoarthritis location: spine Spinal region: lumbar Spinal osteoarthritis complication: without myelopathy or radiculopathy Qualified Code(s): M47.816 - Spondylosis without myelopathy or radiculopathy, lumbar region Plan: #Polyarticular OA Main complaint today is right TMJ pain Will refer to ENT for eval for injections Plan - ENT referral Plan I spent 20 minutes reviewing the record and labs, seeing the patient, discussing the treatment plan and documenting in the medical record ? Orders: Referrals Ear/Nose/Throat Referral M26.649 - Arthritis of unspecified temporomandibular joint Medications: Refilled methocarbamol 750 mg PO Q8H PRN 90 tabs 2RF for muscle pain M47.812 - Spondylosis without myelopathy or radiculopathy, cervical region gabapentin 400 mg PO QID 360 caps 2RF G89.29 - Other chronic pain, M54.41 - Lumbago with sciatica, right side Coding Level of Care Code Est Pt Level 3 (16534) Complex EM visit Add On G2211 Diagnoses Osteopenia of multiple sites M85.89 Osteopenia location: multiple sites Spondylosis of lumbar region without myelopathy or radiculopathy M47.816 Osteoarthritis location: spine Spinal region: lumbar Spinal osteoarthritis complication: without myelopathy or radiculopathy
[2025-10-07 11:13] VITALS: BP 115/70; PULSE 95; O2SAT 96; BMI 22.8
--- OUTSIDE RECORDS SUMMARY | 2025-10-07 13:14 | XMS_ITS | Clinical Summary ---
Author Organization [employer] Address [address] [place] [address] [address] [place] [address] Care Team Providers Care Sales Office Assistant Name Role Phone Unavailable Primary Care Provider [...] Most Recently Relevant to Health Maintenance Insurance [facility]ENT[facility] MEDICAID STAND ADULT
== END 2025-10-07 11:37 | disposition home or self-care (01) ==
LOC: HO.RHES 11:04
PROVIDERS: PCP Internal Medicine; Visit Provider Student in an Organized Health Care Education/Training Program
DX: M85.89 Other specified disorders of bone density and structure, multiple sites (principal); M47.816 Spondylosis without myelopathy or radiculopathy, lumbar region
CPT/HCPCS: 99213; G2211

== ENCOUNTER → 2025-10-07 11:03 | Outpatient (BNVA) | payer MEDICARE, SELFPAY | PROVIDERS: PCP Internal Medicine; Visit Provider Student in an Organized Health Care Education/Training Program | DX: M85.89 Other specified disorders of bone density and structure, multiple sites (principal); M47.816 Spondylosis without myelopathy or radiculopathy, lumbar region; M26.621 Arthralgia of right temporomandibular joint; E55.9 Vitamin D deficiency, unspecified; Z79.899 Other long term (current) drug therapy | CPT/HCPCS: 99212 ==

== ENCOUNTER 2025-11-26 13:41 | Outpatient (REF) | payer MEDICARE, SELFPAY ==
--- NOTE | ~2025-11-26 | MM_ITS ---
EXAMINATION: DXA BONE DENSITY AXIAL HISTORY: M81.0 - Age-related osteoporosis without current pathological fracture TECHNIQUE: The [employer] Dual energy absorptiometry (DEXA) of the lumbar spine, total left hip, and femoral neck was performed. COMPARISON: Comparison is made with the prior examination dated 08/10/2023. FINDINGS: The bone mineral density of the lumbar spine is 1.435 g/cm2, corresponding to a T-score of 2.0, and a Z-score of 3.8. This is indicative of normal bone mineral density. This represents a BMD change of 5.7% compared to the prior exam. This is statistically significant. The bone mineral density of the left total hip is 0.855 g/cm2, corresponding to a T-score of -1.2, and a Z-score of 0.3. This is indicative of osteopenia. This represents a BMD change of -0.2% compared to the prior exam. This is not statistically significant. The bone mineral density of the left femoral neck is 0.868 g/cm2, corresponding to a T-score of -1.2, and a Z-score of 0.5. This is indicative of osteopenia. This represents a BMD change of 1.9% compared to the prior exam. FRACTURE RISK: The FRAX index suggests a ten year probability of major osteoporotic fracture of 8.2%, and of hip fracture 1.5%. MM/XR DEXA axial skeleton IMPRESSION: Based on bone mineral density, and according to World Health Organization (WHO) criteria, the diagnosis is consistent with osteopenia. Statistically, 68% of repeat scans fall within 1 SD (+/- 0.010 g/cm2 for AP spine L1-L4) and 1 SD (+/- 0.012 g/cm2 for femur total) FRAX is a trademark of the [employer]'s [place] [facility] Metabolic Bone Disease, a World Health Organization (WHO) Collaborating Center. Electronically signed by: Jose Shannon MD 11/26/2025 02:[address] [facility]
--- OUTSIDE RECORDS SUMMARY | 2025-11-26 15:01 | XMS_ITS | Clinical Summary ---
Author Organization [employer] Address [address] [place] [address] [address] [place] [address] Care Team Providers Care Rod Drawer Name Role Phone Unavailable Primary Care Provider [...] [employer] 01/03/2025 01/02/2024 COVID-19 Vaccine (1 - 2024-2 6 season) 2025 Influenza Vaccine (#1) 2025 RSV [...] Most Recently Relevant to Health Maintenance Insurance [facility]AL-[facility] MEDICAID STAND ADULT
== END 2025-11-26 13:42 | disposition home or self-care (01) ==
LOC: HO.MAMMO 13:41
PROVIDERS: PCP Internal Medicine; Visit Provider Student in an Organized Health Care Education/Training Program
DX: M81.0 Age-related osteoporosis without current pathological fracture (principal)
CPT/HCPCS: 77080

== ENCOUNTER → 2025-11-26 14:00 | Outpatient (BNV) | payer MEDICARE, SELFPAY | PROVIDERS: PCP Internal Medicine; Visit Provider Radiology Diagnostic Radiology | DX: E28.39 Other primary ovarian failure (principal) | CPT/HCPCS: 77080 ==